=== PATIENT | male | born 1955 | race Caucasian/White ===

== ENCOUNTER 2017-04-14 10:35 | Emergency (ER) | payer OTHER ==
[~2017-04-14] VITALS: Ht 182.9 cm; Wt 90.0 kg
[2017-04-14 11:24] LABS: AUTOMATED NEUTROPHIL # 5.8 TH/MM3 (1.8-7.7); BASOPHIL # 0.3 TH/MM3 (0-0.2); BASOPHIL % 3.3 % (0.0-2.0); EOSINOPHIL # 0.3 TH/MM3 (0-0.4); EOSINOPHIL % 3.5 % (0.0-4.0); HEMATOCRIT 44.2 % (39.0-51.0); HEMO FLAGS DIFF FINAL; LYMPH % 16.6 % (9.0-44.0); LYMPHOCYTE # 1.3 TH/MM3 (1.0-4.8); MEAN CELL VOLUME 98.4 FL (80.0-100.0); MEAN CORPUSCULAR HEMOGLOBIN 33.3 PG (27.0-34.0); MEAN CORPUSCULAR HGB CONC 33.9 % (32.0-36.0); MONO % 4.9 % (0.0-8.0); NEUT % 71.7 % (16.0-70.0); PLATELET COUNT 284 TH/MM3 (150-450); RED BLOOD COUNT 4.49 MIL/MM3 (4.50-5.90); RED CELL DISTRIBUTION WIDTH 12.7 % (11.6-17.2); WHITE BLOOD COUNT 8.1 TH/MM3 (4.0-11.0)
--- NOTE | 2017-04-14 11:28 | PD ---
HPI . Left heel and right knee pain Chief Complaint: Injury Time Seen by Provider: 11:06 Travel History International Travel<30 days: No Contact w/Intl Traveler<30days: No Traveled to known affect area: No History of Present Illness HPI This patient presents with 2 problems. His first his left heel pain. He states that he stepped on a nail that her cane which was 2 months ago. He was wearing a shoe. He states that the nail went into the plantar heel and out the medial heel. He states that the nail came back out when he took off his shoe. He really did not think much of it. He states that the puncture wounds healed nicely but that he has continued to have severe left heel pain since that time. The pain is exacerbated by stepping on his heel. He denies any associated systemic symptoms such as fever or nausea. He states that he has taken over-the -counter analgesics with no relief of his symptoms. He states that his left heel pain was so bad yesterday that caused him to fall landing on his right knee. He comes in today also complaining with right knee pain. Pain of the right knee is exacerbated by walking. The knee pain is moderate. PFSH Past Medical History Arthritis: Yes Blood Disorders: No Heart Rhythm Problems: No Cancer: No Cardiac Catheterization: No Cardiovascular Problems: Yes (STRESS TEST IN JUL) High Cholesterol: Yes Chest Pain: Yes Congestive Heart Failure: No Cerebrovascular Accident: Yes Diabetes: No Diminished Hearing: No Endocrine: No Gastrointestinal Disorders: Yes GERD: Yes Genitourinary: Yes (BLOODY URINE) Hepatitis: No Hiatal Hernia: No Immune Disorder: No Musculoskeletal: Yes (2 RUPTURED DISC LOWER BACK, 1 RUPTURED DISC NECK) Neurologic: Yes (HX "MINI" STROKE) Psychiatric: No Reproductive: No Respiratory: No Immunizations Current: No Thyroid Disease: No PNEUMOCCOCAL Vaccine (Year): 2 Past Surgical History Abdominal Surgery: No AICD: No Body Medical Devices: NONE Cardiac Surgery: No Coronary Artery Bypass Graft: No Ear Surgery: No Endocrine Surgery: No Eye Surgery: No Genitourinary Surgery: Yes (TUMOR REMOVAL FROM BLADDER) Joint Replacement: No Oral Surgery: Yes (TONSILLECTOMY) Pacemaker: No Thoracic Surgery: No Other Surgery: Yes Family History Family Myocardial Infarction: Yes (MOM AND DAD) Social History Alcohol Use: Yes (2-3 X WK) Tobacco Use: Yes (1/2 PPD X 35 YEARS) Substance Use: No Allergies-Medications (Allergen,Severity, Reaction): Coded Allergies: *MDRO Multi-Drug Resistant Organism (Verified Allergy, Unknown, 04/14/17) MRSA PATIENT STATES HE HAS NEVER HAD MRSA Reported Meds & Prescriptions Reported Meds & Active Scripts Active Cipro (Ciprofloxacin HCl) 250 Mg Tab 750 Mg PO BID 10 Days Nabumetone 750 Mg Tab 750 Mg PO BID Review of Systems Except as stated in HPI: all other systems reviewed are Neg General / Constitutional: No: Fever, Chills Gastrointestinal: No: Nausea, Vomiting Musculoskeletal: Positive: Arthralgias Skin: Positive Other (healed puncture wounds to the left heel) Physical Exam Narrative GENERAL: This patient is awake and alert and does not appear to be in any acute distress. SKIN: Warm and dry. The skin of the left heel has no changes. There is no redness or warmth or swelling. HEAD: Normocephalic/atraumatic. EYES: Pupils are equal. Extraocular movements are intact. NECK: Supple with full range of motion. RESPIRATORY: Nonlabored respirations. MUSCULOSKELETAL: Diffuse left heel tenderness. No point tenderness. Right knee is also diffusely tender. There is no effusion. No bruising or abrasion. Full range of motion. Distally neurovascularly intact. NEUROLOGICAL: Nonfocal. PSYCHIATRIC: Appropriate mood and affect. Data Data Orders Orders Foot, Complete ([id number]) (04/14/17 11:06) Knee, Complete (4vws) (04/14/17 11:06) Complete Blood Count With Diff (04/14/17 11:06) Westergren Sedimentation Rate (04/14/17 11:08) Labs Laboratory Tests Test 04/14/17 11:18 White Blood Count 8.1 TH/MM3 Red Blood Count 4.49 MIL/MM3 Hemoglobin 15.0 GM/DL Hematocrit 44.2 % Mean Corpuscular Volume 98.4 FL Mean Corpuscular Hemoglobin 33.3 PG Mean Corpuscular Hemoglobin Concent 33.9 % Red Cell Distribution Width 12.7 % Platelet Count 284 TH/MM3 Mean Platelet Volume 7.1 FL Neutrophils (%) (Auto) 71.7 % Lymphocytes (%) (Auto) 16.6 % Monocytes (%) (Auto) 4.9 % Eosinophils (%) (Auto) 3.5 % Basophils (%) (Auto) 3.3 % Neutrophils # (Auto) 5.8 TH/MM3 Lymphocytes # (Auto) 1.3 TH/MM3 Monocytes # (Auto) 0.4 TH/MM3 Eosinophils # (Auto) 0.3 TH/MM3 Basophils # (Auto) 0.3 TH/MM3 CBC Comment DIFF FINAL Differential Comment Erythrocyte Sedimentation Rate 6 mm/hr MDM Medical Decision Making Medical Screen Exam Complete: Yes Emergency Medical Condition: Yes Differential Diagnosis Differential diagnosis of extremity trauma includes but is not limited to fracture, sprain or strain, dislocation, contusion My differential diagnosis of tissue infection includes but is not limited to localized wound infection, cellulitis, abscess, retained foreign body, osteomyelitis Narrative Course This patient presents for the evaluation of 2 problems. His first is continued pain in his left heel after suffering a puncture wound through his shoe 2 months ago. I have ordered plain films, CBC and sedimentation rate as an initial evaluation of possible osteomyelitis. This has been an ongoing problem for 2 months. Therefore, I do not believe that emergent MRI is indicated. He is also here with a right knee injury. I have a very low index of suspicion of significant injury to the ED as there is no swelling or deformity. X-rays are pending. CBC Diagram 04/14/17 11:18 ESR 6 L foot X-ray: Three view examination of the left foot demonstrates no soft tissue swelling, dislocation, or fracture. The tarsal bones appear intact. The interphalangeal and metatarsophalangeal joints are intact. The calcaneus is intact. Bony mineralization is normal. Last Impressions Knee X-Ray 04/14/17 1106 Signed Impressions: Service Date/Time: Friday, April 14, 2017 11:19 - CONCLUSION: Negative for fracture. Nahum Lainez MD FACR This patient has normal plain films, normal white blood count and normal sedimentation rate. My index of suspicion for osteomyelitis is extremely low. Will present infection since he stepped on a nail through a shoe. He will be treated with Cipro. I have given him a referral to [facility]. I have given him a prescription for Relafen to take as needed for pain. Diagnosis Primary Impression: Soft tissue infection of foot Additional Impression: Contusion, knee Qualified Codes: S80.01XA - Contusion of right knee, initial encounter Referrals: [facility] 3 days Patient Instructions: Contusion in Adults (DC), General Instructions Med/Other Pt SpecificInfo: Prescription(s) given Scripts Ciprofloxacin (Cipro) 250 Mg Tab 750 MG PO BID for Infection for 10 Days, #60 TAB 0 Refills Prov: Sheridan Valladares MD 04/14/17 Nabumetone (Nabumetone) 750 Mg Tab 750 MG PO BID for Pain-Inflammation, #60 TAB 0 Refills Prov: Sheridan Valladares MD 04/14/17 Disposition: 01 DISCHARGE HOME Condition: Stable Sheridan Valladares MD Apr 14, 2017 11:28
--- NOTE | 2017-04-14 11:42 | RADRPT ---
EXAM DATE/TIME: 04/14/2017 11:19 [facility] COMPARISON: No previous studies available for comparison. INDICATIONS : Right knee pain post fall. MEDICAL HISTORY : Carcinoma, bladder. SURGICAL HISTORY : None. ENCOUNTER: Initial ACUITY: 1 day PAIN SCORE: 6/10 LOCATION: Right medial knee FINDINGS: Four view examination of the right knee demonstrates no evidence of fracture or dislocation. Bony mi neralization is normal. The articular surfaces are intact. Moderate vascular calcifications are not ed. The suprapatellar soft tissues have a normal configuration. CONCLUSION: Negative for fracture. Nahum Lainez MD FACR on April 14, 2017 at 11:40 Board Certified Radiologist. This report was verified electronically.
--- NOTE | 2017-04-14 11:43 | RADRPT ---
EXAM DATE/TIME: 04/14/2017 11:19 [facility] COMPARISON: No previous studies available for comparison. INDICATIONS : Left foot pain post fall. MEDICAL HISTORY : Carcinoma, bladder. SURGICAL HISTORY : None. ENCOUNTER: Initial ACUITY: 1 day PAIN SCORE: 6/10 LOCATION: Left heel FINDINGS: Three view examination of the left foot demonstrates no soft tissue swelling, dislocation, or fractur e. The tarsal bones appear intact. The interphalangeal and metatarsophalangeal joints are intact. The calcaneus is intact. Bony mineralization is normal. CONCLUSION: Negative for fracture. Nahum Lainez MD FACR on April 14, 2017 at 11:41 Board Certified Radiologist. This report was verified electronically.
[2017-04-14] MEDS ORDERED: CIPR250T52 PO (11:52)
[2017-04-14] MEDS ORDERED: NABU1TAB33 PO ×2 (11:52→12:04)
== END 2017-04-14 12:09 | disposition home or self-care (01) ==
LOC: PHEFT 10:35
DX: L08.9 Local infection of the skin and subcutaneous tissue, unspecified (principal); S80.01XA Contusion of right knee, initial encounter; E78.00 Pure hypercholesterolemia, unspecified; F17.200 Nicotine dependence, unspecified, uncomplicated; W45.0XXA Nail entering through skin, initial encounter; W18.39XA Other fall on same level, initial encounter; Z87.39 Personal history of other diseases of the musculoskeletal system and connective tissue; Z86.79 Personal history of other diseases of the circulatory system; Z87.19 Personal history of other diseases of the digestive system; Z87.448 Personal history of other diseases of urinary system; Z86.69 Personal history of other diseases of the nervous system and sense organs
CPT/HCPCS: 73564; 73630; 85025; 85652; 99284

== ENCOUNTER 2017-07-13 00:27 | Observation (INO) | payer SELFPAY ==
[~2017-07-13] VITALS: Ht 182.9 cm; Wt 86.0 kg
[2017-07-13] VITALS (9 sets, daily range): BP systolic 117–137; BP diastolic 67–90; PULSE 68–100; RESP 16–20; TEMP 98–99.1; O2SAT 93–99
[~2017-07-13 00:27] MED LIST: CIPR250T52 PO; NABU1TAB33 PO
[2017-07-13] MEDS ORDERED: ONDANSETRON HCL 4 MG/2 ML VIAL IV PUSH ONE (01:15)
[2017-07-13] MEDS ORDERED: DIPHTH/TETANUS/ACEL PERTUSSIS (BOOSTER) 0.5 ML VIAL/PFS IM ONE (01:15)
[2017-07-13] MEDS ORDERED: SODIUM CHLORIDE 0.9% FLUSH 10 ML FLUSH IVF PRN (01:15)
--- NOTE | 2017-07-13 01:41 | RADRPT ---
EXAM DATE/TIME: 07/13/2017 01:23 [facility] COMPARISON: CT BRAIN W/O CONTRAST, July 04, 2014, 12:52. INDICATIONS : Trauma, fall. Laceration to posterior head. RADIATION DOSE: 35.39 CTDIvol (mGy) MEDICAL HISTORY : Cerebrovascular disease. Cardiovascular disease SURGICAL HISTORY : None. ENCOUNTER: Initial ACUITY: 1 day PAIN SCALE: 4/10 LOCATION: cranial TECHNIQUE: Multiple contiguous axial images were obtained of the head. Using automated exposure control and adj ustment of the mA and/or kV according to patient size, radiation dose was kept as low as reasonably a chievable to obtain optimal diagnostic quality images. DICOM format image data is available electro nically for review and comparison. FINDINGS: CEREBRUM: There is moderate generalized atrophy. Ventricles are normal. There is mild periventricular white mat ter low attenuation. No evidence of midline shift, mass lesion, hemorrhage or acute infarction. No extra-axial fluid collections are seen. POSTERIOR FOSSA: The cerebellum and brainstem demonstrate no acute finding. The 4th ventricle is midline. The cerebe llopontine angle is unremarkable. EXTRACRANIAL: There is right posterior scalp soft tissue swelling. Mild mucoperiosteal thickening is present within the sphenoid sinus. SKULL: The calvaria is intact. No evidence of skull fracture. CONCLUSION: Mild right posterior scalp soft tissue swelling. No fracture or acute intracranial abnormality is sherry ntified. Aron Moncada MD on July 13, 2017 at 1:36 Board Certified Radiologist. This report was verified electronically.
[2017-07-13 01:43] LABS: AUTOMATED NEUTROPHIL # 9.3 TH/MM3 (1.8-7.7); BASOPHIL # 0.2 TH/MM3 (0-0.2); BASOPHIL % 1.6 % (0.0-2.0); EOSINOPHIL # 0.1 TH/MM3 (0-0.4); EOSINOPHIL % 1.4 % (0.0-4.0); HEMATOCRIT 41.4 % (39.0-51.0); HEMOGLOBIN 14.5 GM/DL (13.0-17.0); LYMPH % 4.6 % (9.0-44.0); LYMPHOCYTE # 0.5 TH/MM3 (1.0-4.8); MEAN CELL VOLUME 98.5 FL (80.0-100.0); MEAN CORPUSCULAR HEMOGLOBIN 34.6 PG (27.0-34.0); MEAN CORPUSCULAR HGB CONC 35.1 % (32.0-36.0); MEAN PLATELET VOLUME 7.5 FL (7.0-11.0); MONO % 5.2 % (0.0-8.0); MONOCYTE # 0.6 TH/MM3 (0-0.9); NEUT % 87.2 % (16.0-70.0); PLATELET COUNT 208 TH/MM3 (150-450); RED BLOOD COUNT 4.21 MIL/MM3 (4.50-5.90); RED CELL DISTRIBUTION WIDTH 13.9 % (11.6-17.2); WHITE BLOOD COUNT 10.7 TH/MM3 (4.0-11.0)
--- NOTE | 2017-07-13 01:44 | RADRPT ---
EXAM DATE/TIME: 07/13/2017 01:23 [facility] COMPARISON: No previous studies available for comparison. INDICATIONS : Trauma, fall. RADIATION DOSE: 20.12 CTDIvol (mGy) MEDICAL HISTORY : Cardiovascular disease. Cerebrovascular disease. SURGICAL HISTORY : None. ENCOUNTER: Initial ACUITY: 1 day PAIN SCALE: 0/10 LOCATION: neck TECHNIQUE: Volumetric scanning of the cervical spine was performed. Multiplanar reconstructions in the sagittal, coronal and oblique axial planes were performed. Using automated exposure control and adjustment o f the mA and/or kV according to patient size, radiation dose was kept as low as reasonably achievable to obtain optimal diagnostic quality images. DICOM format image data is available electronically f or review and comparison. FINDINGS: There is normal sagittal spine alignment of the cervical spine. No anterolisthesis or retrolisthesis is present. The atlantoaxial relationship is within normal limits. There is no prevertebral soft tiss ue swelling present. No fracture or dislocation is identified. There is degenerative disc disease at C5-C6 and more severely at C6-C7. Severe right facet arthrosis is present at C3-C4 and C4-C5. The visualized portions of the posterior fossa, paraspinous soft tissues, and upper lung zones demons trate no acute abnormality. CONCLUSION: There are degenerative changes of the cervical spine, as above. No acute cervical spine abnormality i s identified. Aron Moncada MD on July 13, 2017 at 1:40 Board Certified Radiologist. This report was verified electronically.
[2017-07-13 01:50] LABS: BICARBONATE 25.2 MEQ/L (21.0-32.0); BLOOD UREA NITROGEN 9 MG/DL (7-18); CALCIUM 8.4 MG/DL (8.5-10.1); CHLORIDE 105 MEQ/L (98-107); CREATININE 0.86 MG/DL (0.60-1.30); GLOMERULAR FILTRATION RATE 90 ML/MIN (>89); GLUCOSE,RANDOM 99 MG/DL (74-106); SODIUM (NA) 139 MEQ/L (136-145)
[2017-07-13 01:54] LABS: TROPONIN I LESS THAN 0.02 NG/ML (0.02-0.05)
--- NOTE | 2017-07-13 01:56 | RADRPT ---
EXAM DATE/TIME: 07/13/2017 01:37 [facility] COMPARISON: HUMERUS RIGHT (MIN 2VWS), March 16, 2012, 18:15. INDICATIONS : Right humerus pain post fall. MEDICAL HISTORY : Cerebrovascular disease. Cardiovascular disease. SURGICAL HISTORY : None. ENCOUNTER: Initial ACUITY: 1 day PAIN SCORE: 6/10 LOCATION: Right humerus. FINDINGS: 2 views right humerus demonstrate no fracture or dislocation. Mineralization is within normal limits. No soft tissue abnormality or radiopaque foreign body is identified. CONCLUSION: No acute abnormality is identified. Aron Moncada MD on July 13, 2017 at 1:54 Board Certified Radiologist. This report was verified electronically.
--- NOTE | 2017-07-13 01:56 | RADRPT ---
EXAM DATE/TIME: 07/13/2017 01:32 [facility] COMPARISON: No previous studies available for comparison. INDICATIONS : Right forearm pain post fall. MEDICAL HISTORY : Cerebrovascular disease. Cardiovascular disease. SURGICAL HISTORY : None. ENCOUNTER: Initial ACUITY: 1 day PAIN SCORE: 6/10 LOCATION: Right forearm. FINDINGS: 3 views of the right forearm demonstrate no fracture or dislocation. Mineralization is within normal limits. No soft tissue abnormality is identified. CONCLUSION: No acute abnormality is identified. Aron Moncada MD on July 13, 2017 at 1:53 Board Certified Radiologist. This report was verified electronically.
[2017-07-13] MEDS ORDERED: SODIUM CHLORIDE 0.9% FLUSH 10 ML FLUSH IV FLUSH PRN (04:15)
--- NOTE | 2017-07-13 05:07 | PD ---
HPI Chief Complaint: Fall Time Seen by Provider: 01:05 Travel History International Travel<30 days: No Contact w/Intl Traveler<30days: No Traveled to known affect area: No History of Present Illness HPI 62-year-old male presents to the emergency department by EMS transport for evaluation of head injury right upper extremity pain and chest pain. Patient had a possible trip and fall versus a fainting spell but admits to drinking alcohol this evening. Patient states that he has had fainting spells before and also has a history of angina. Patient states his chest discomfort reminds him of his anginal pain. Patient denies headache or confusion. Patient has had nausea without vomiting. Patient denies shortness of breath or sweats or referred neck jaw shoulder back left upper extremity pain. Patient complains of right arm pain and is concerned that he may have injured his elbow when he fell. Patient denies any lower extremity pain or weakness. Patient states his tetanus status he believes is current. Patient admits to ongoing tobacco use history of dyslipidemia and family history of premature onset heart disease. Tetanus status is current as of 2014 [facility] Past Medical History Narrative Medical Arthritis dyslipidemia chest pain CVA alcoholism; family history CAD/VT nursing notes reviewed; Arthritis: Yes Blood Disorders: No Heart Rhythm Problems: No Cancer: No Cardiac Catheterization: No Cardiovascular Problems: Yes (STRESS TEST IN JUL) High Cholesterol: Yes Chest Pain: Yes Congestive Heart Failure: No Cerebrovascular Accident: Yes Diabetes: No Diminished Hearing: No Endocrine: No Gastrointestinal Disorders: Yes (GERD) GERD: Yes Genitourinary: Yes (BLOODY URINE) Hepatitis: No Hiatal Hernia: No Immune Disorder: No Musculoskeletal: Yes (2 RUPTURED DISC LOWER BACK, 1 RUPTURED DISC NECK) Neurologic: Yes (HX "MINI" STROKE) Psychiatric: No Reproductive: No Respiratory: No Immunizations Current: No Thyroid Disease: No Tetanus Vaccination: > 5 Years Influenza Vaccination: No PNEUMOCCOCAL Vaccine (Year): 2 Past Surgical History Abdominal Surgery: No AICD: No Body Medical Devices: NONE Cardiac Surgery: No Coronary Artery Bypass Graft: No Ear Surgery: No Endocrine Surgery: No Eye Surgery: No Genitourinary Surgery: Yes (TUMOR REMOVAL FROM BLADDER) Joint Replacement: No Oral Surgery: Yes (TONSILLECTOMY) Pacemaker: No Thoracic Surgery: No Other Surgery: Yes Family History Family Myocardial Infarction: Yes (MOM AND DAD) Social History Alcohol Use: Yes (2-3 X WK) Tobacco Use: Yes (1-1/2 PPD X 35 YEARS) Substance Use: No Allergies-Medications (Allergen,Severity, Reaction): Coded Allergies: *MDRO Multi-Drug Resistant Organism (Verified Allergy, Unknown, 07/13/17) MRSA PATIENT STATES HE HAS NEVER HAD MRSA Reported Meds & Prescriptions Reported Meds & Active Scripts Active No Active Prescriptions or Reported Medications Review of Systems Except as stated in HPI: all other systems reviewed are Neg Physical Exam Narrative GENERAL: Well-developed well-nourished disheveled male in no acute distress no respiratory distress SKIN: Warm and dry. HEAD: Atraumatic. Normocephalic. Right posterior parietal scalp hematoma with 2 cm linear laceration bleeding controlled and right forehead contusion abrasion with soft tissue swelling no bony abnormality. EYES: Pupils equal and round. Extraocular muscles intact. No periorbital rim bony step-off. No scleral icterus. No injection or drainage. ENT: No nasal bleeding or discharge. Mucous membranes pink and moist. No hemotympanum. NECK: Trachea midline. No JVD. No midline tenderness to direct palpation along the cervical spine no bony step-off. CARDIOVASCULAR: Regular rate and rhythm. Chest wall: Nontender to direct palpation no crepitus no point tenderness no abrasion or ecchymosis. RESPIRATORY: No accessory muscle use. Clear to auscultation. Breath sounds equal bilaterally. GASTROINTESTINAL: Abdomen soft, non-tender, nondistended. Hepatic and splenic margins not palpable. MUSCULOSKELETAL: Extremities without clubbing, cyanosis, or edema. No obvious deformities. NEUROLOGICAL: Awake and alert. GCS 15. No obvious cranial nerve deficits. Motor grossly within normal limits. Five out of 5 muscle strength in the arms and legs. Normal speech. PSYCHIATRIC: Appropriate mood and affect; insight and judgment normal. Data Data Last Documented VS Vital Signs Date Time Temp Pulse Resp B/P (MAP) Pulse Ox O2 Delivery O2 Flow Rate FiO2 07/13/17 01:17 99 Room Air 07/13/17 01:17 16 07/13/17 00:37 98.0 99 127/90 (102) Orders Orders Basic Metabolic Panel (Bmp) (07/13/17 01:05) Complete Blood Count With Diff (07/13/17 01:05) Prothrombin Time / Inr (Pt) (07/13/17 01:05) Act Partial Throm Time (Ptt) (07/13/17 01:05) Type And Screen (07/13/17 01:05) Alcohol (Ethanol) (07/13/17 01:05) Drug Screen, Random Urine (07/13/17 01:05) Ct Brain W/O Iv Contrast(Rout) (07/13/17 01:05) Ct Cerv Spine W/O Contrast (07/13/17 01:05) Electrocardiogram (07/13/17 01:05) Iv Access Insert/Monitor (07/13/17 01:05) Ecg Monitoring (07/13/17 01:05) Oximetry (07/13/17 01:05) Oxygen Administration (07/13/17 01:05) Ondansetron Inj (Zofran Inj) (07/13/17 01:15) Lxuy-Hbc-Qhyskg (Booster) Inj (Boostrix (07/13/17 01:15) Sodium Chloride 0.9% Flush (Ns Flush) (07/13/17 01:15) Troponin I (07/13/17 01:05) Humerus (Min 2vws) (07/13/17 ) Forearm (2vws) (07/13/17 ) Admit Order (Ed Use Only) (07/13/17 ) Tufter Hand / Telemetry RIVAS.Q8H (07/13/17 04:04) Diet Heart Healthy (07/13/17 Breakfast) Activity Oob With Assistance (07/13/17 04:04) Notify Dr: Other (07/13/17 04:04) Activity Bed Rest With Brp (07/13/17 04:04) Vital Signs (Adult) Q4H (07/13/17 04:04) Cardiac Rhythm .As Directed (07/13/17 04:04) Notify Dr: Other .PRN (07/13/17 04:04) Notify Parameters (07/13/17 04:04) Resp Oxygen Nasal Cannula (07/13/17 ) Ckmb (Isoenzyme) Profile (07/13/17 04:15) Ckmb (Isoenzyme) Profile (07/13/17 07:15) Troponin I (07/13/17 04:15) Troponin I (07/13/17 07:15) Electrocardiogram (07/13/17 04:15) Electrocardiogram (07/13/17 07:15) ^ Obtain (07/13/17 04:04) Sodium Chloride 0.9% Flush (Ns Flush) (07/13/17 04:15) Sodium Chloride 0.9% Flush (Ns Flush) (07/13/17 09:00) Tufter Hand / Telemetry RIVAS.Q8H (07/13/17 04:04) Labs Laboratory Tests Test 07/13/17 01:15 White Blood Count 10.7 TH/MM3 Red Blood Count 4.21 MIL/MM3 Hemoglobin 14.5 GM/DL Hematocrit 41.4 % Mean Corpuscular Volume 98.5 FL Mean Corpuscular Hemoglobin 34.6 PG Mean Corpuscular Hemoglobin Concent 35.1 % Red Cell Distribution Width 13.9 % Platelet Count 208 TH/MM3 Mean Platelet Volume 7.5 FL Neutrophils (%) (Auto) 87.2 % Lymphocytes (%) (Auto) 4.6 % Monocytes (%) (Auto) 5.2 % Eosinophils (%) (Auto) 1.4 % Basophils (%) (Auto) 1.6 % Neutrophils # (Auto) 9.3 TH/MM3 Lymphocytes # (Auto) 0.5 TH/MM3 Monocytes # (Auto) 0.6 TH/MM3 Eosinophils # (Auto) 0.1 TH/MM3 Basophils # (Auto) 0.2 TH/MM3 CBC Comment AUTO DIFF Differential Comment AUTO DIFF CONFIRMED Prothrombin Time 10.0 SEC Prothromb Time International Ratio 1.0 RATIO Activated Partial Thromboplast Time 25.9 SEC Blood Urea Nitrogen 9 MG/DL Creatinine 0.86 MG/DL Random Glucose 99 MG/DL Calcium Level 8.4 MG/DL Sodium Level 139 MEQ/L Potassium Level 3.5 MEQ/L Chloride Level 105 MEQ/L Carbon Dioxide Level 25.2 MEQ/L Anion Gap 9 MEQ/L Estimat Glomerular Filtration Rate 90 ML/MIN Troponin I LESS THAN 0.02 NG/ML Ethyl Alcohol Level 130 MG/DL MDM Medical Decision Making Medical Screen Exam Complete: Yes Emergency Medical Condition: Yes Medical Record Reviewed: Yes Interpretation(s) EKG normal sinus rhythm rate 85 Q-wave inferiorly poor R-wave progression septally no acute ST elevation or injury pattern Last Impressions Head CT 07/13/17 0105 Signed Impressions: Service Date/Time: July 01:23 - CONCLUSION: Mild right posterior scalp soft tissue swelling. No fracture or acute intracranial abnormality is identified. Aron Moncada MD Cervical Spine CT 07/13/17 0105 Signed Impressions: Service Date/Time: July 01:23 - CONCLUSION: There are degenerative changes of the cervical spine, as above. No acute cervical spine abnormality is identified. Aron Moncada MD Radius/Ulna X-Ray 07/13/17 0000 Signed Impressions: Service Date/Time: July 01:32 - CONCLUSION: No acute abnormality is identified. Aron Moncada MD Humerus X-Ray 07/13/17 0000 Signed Impressions: Service Date/Time: July 01:37 - CONCLUSION: No acute abnormality is identified. Aron Moncada MD CBC & BMP Diagram 07/13/17 01:15 Calcium Level 8.4 L Vital Signs Date Time Temp Pulse Resp B/P (MAP) Pulse Ox O2 Delivery O2 Flow Rate FiO2 07/13/17 01:17 99 Room Air 07/13/17 01:17 16 99 Room Air 07/13/17 00:37 98.0 99 16 127/90 (102) 96 Differential Diagnosis Syncope, alcohol intoxication, minor closed head injury, ICH, skull fracture, cervical spine strain sprain fracture, chest pain, chest wall contusion, rib fracture, ACS, VT, alcohol intoxication, substance ingestion Narrative Course IV access obtained specimens collected and sent for resulting patient placed on cardiac cath tech with continuous pulse oximetry; CT imaging studies ordered along with chest x-ray EKG performed EKG normal sinus rhythm rate 84 small inferior Q-wave age- indeterminate poor R-wave progression septally V1 V2 no acute ST elevation injury pattern Physician Communication Physician Communication discussed with [facility] service --- CARE NURSE RN Diagnosis Primary Impression: Chest pain Additional Impressions: Tobacco abuse Alcohol ingestion Minor head injury Admitting Information Admitting Physician Requests: Observation Scripts No Active Prescriptions or Reported Meds Joanna Oneal MD Jul 13, 2017 05:07
--- NOTE | 2017-07-13 05:33 | RADRPT ---
EXAM DATE/TIME: 07/13/2017 05:16 [facility] COMPARISON: CHEST SINGLE AP, September 22, 2014, 19:41. INDICATIONS : Chest pain. MEDICAL HISTORY : Cerebrovascular disease. Cardiovascular disease. SURGICAL HISTORY : None. ENCOUNTER: Initial ACUITY: 1 day PAIN SCORE: 110 LOCATION: Bilateral cranial FINDINGS: Portable AP view of the chest demonstrates a normal-sized cardiac silhouette. Lungs are underinflated with mild atelectasis at the lung bases. No effusion, consolidation, or pneumothorax is identified. The bones and soft tissues demonstrate no acute finding. There is an old healed right mid clavicle fr acture. CONCLUSION: Underinflation with atelectasis at the lung bases. Otherwise, no acute finding is identified. Aron Moncada MD on July 13, 2017 at 5:31 Board Certified Radiologist. This report was verified electronically.
--- NOTE | 2017-07-13 05:53 | PD ---
Physical Exam Date Seen by Provider: Jul 13, 2017 Narrative For full history and physical examination please see previous providers note. I was asked to repair laceration to patient's posterior scalp. Data Data Last Documented VS Vital Signs Date Time Temp Pulse Resp B/P (MAP) Pulse Ox O2 Delivery O2 Flow Rate FiO2 07/13/17 01:17 99 Room Air 07/13/17 01:17 16 07/13/17 00:37 98.0 99 127/90 (102) Orders Orders Basic Metabolic Panel (Bmp) (07/13/17 01:05) Complete Blood Count With Diff (07/13/17 01:05) Prothrombin Time / Inr (Pt) (07/13/17 01:05) Act Partial Throm Time (Ptt) (07/13/17 01:05) Type And Screen (07/13/17 01:05) Alcohol (Ethanol) (07/13/17 01:05) Drug Screen, Random Urine (07/13/17 01:05) Ct Brain W/O Iv Contrast(Rout) (07/13/17 01:05) Ct Cerv Spine W/O Contrast (07/13/17 01:05) Electrocardiogram (07/13/17 01:05) Iv Access Insert/Monitor (07/13/17 01:05) Ecg Monitoring (07/13/17 01:05) Oximetry (07/13/17 01:05) Oxygen Administration (07/13/17 01:05) Ondansetron Inj (Zofran Inj) (07/13/17 01:15) Tywc-Upy-Onjjcq (Booster) Inj (Boostrix (07/13/17 01:15) Sodium Chloride 0.9% Flush (Ns Flush) (07/13/17 01:15) Troponin I (07/13/17 01:05) Humerus (Min 2vws) (07/13/17 ) Forearm (2vws) (07/13/17 ) Admit Order (Ed Use Only) (07/13/17 ) 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 RIVAS.Q8H (07/13/17 04:04) Diet Heart Healthy (07/13/17 Breakfast) Activity Oob With Assistance (07/13/17 04:04) Notify Dr: Other (07/13/17 04:04) Activity Bed Rest With Brp (07/13/17 04:04) Vital Signs (Adult) Q4H (07/13/17 04:04) Cardiac Rhythm .As Directed (07/13/17 04:04) Notify Dr: Other .PRN (07/13/17 04:04) Notify DrForeign Parameters (07/13/17 04:04) Resp Oxygen Nasal Cannula (07/13/17 ) Ckmb (Isoenzyme) Profile (07/13/17 04:15) Ckmb (Isoenzyme) Profile (07/13/17 07:15) Troponin I (07/13/17 04:15) Troponin I (07/13/17 07:15) Electrocardiogram (07/13/17 04:15) Electrocardiogram (07/13/17 07:15) ^ Obtain (07/13/17 04:04) Sodium Chloride 0.9% Flush (Ns Flush) (07/13/17 04:15) Sodium Chloride 0.9% Flush (Ns Flush) (07/13/17 09:00) 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 RIVAS.Q8H (07/13/17 04:04) Labs Laboratory Tests Test 07/13/17 01:15 White Blood Count 10.7 TH/MM3 Red Blood Count 4.21 MIL/MM3 Hemoglobin 14.5 GM/DL Hematocrit 41.4 % Mean Corpuscular Volume 98.5 FL Mean Corpuscular Hemoglobin 34.6 PG Mean Corpuscular Hemoglobin Concent 35.1 % Red Cell Distribution Width 13.9 % Platelet Count 208 TH/MM3 Mean Platelet Volume 7.5 FL Neutrophils (%) (Auto) 87.2 % Lymphocytes (%) (Auto) 4.6 % Monocytes (%) (Auto) 5.2 % Eosinophils (%) (Auto) 1.4 % Basophils (%) (Auto) 1.6 % Neutrophils # (Auto) 9.3 TH/MM3 Lymphocytes # (Auto) 0.5 TH/MM3 Monocytes # (Auto) 0.6 TH/MM3 Eosinophils # (Auto) 0.1 TH/MM3 Basophils # (Auto) 0.2 TH/MM3 CBC Comment AUTO DIFF Differential Comment AUTO DIFF CONFIRMED Prothrombin Time 10.0 SEC Prothromb Time International Ratio 1.0 RATIO Activated Partial Thromboplast Time 25.9 SEC Blood Urea Nitrogen 9 MG/DL Creatinine 0.86 MG/DL Random Glucose 99 MG/DL Calcium Level 8.4 MG/DL Sodium Level 139 MEQ/L Potassium Level 3.5 MEQ/L Chloride Level 105 MEQ/L Carbon Dioxide Level 25.2 MEQ/L Anion Gap 9 MEQ/L Estimat Glomerular Filtration Rate 90 ML/MIN Troponin I LESS THAN 0.02 NG/ML Ethyl Alcohol Level 130 MG/DL [facility] Medical Record Reviewed: Yes Supervised Visit with ROB: Yes Procedures Procedure Narrative LACERATION LOCATION: Posterior scalp LENGTH: Starburst NUMBER OF STITCHES/TIFFANIE: 4 tiffanie REPAIR: The area of the laceration was prepped with Betadine and sterilely draped. The wound was copiously irrigated and explored without evidence of foreign body, tendon injury or neurovascular injury. The wound was closed using tiffanie. This was a 1 layer repair. A sterile dressing was applied. The patient was advised to keep the dressing clean and dry. Patient tolerated the procedure well. Diagnosis Primary Impression: Chest pain Additional Impressions: Minor head injury Tobacco abuse Alcohol ingestion Scripts No Active Prescriptions or Reported Zakia Antoine Jul 13, 2017 05:53
[2017-07-13 06:05] LABS: TROPONIN I LESS THAN 0.02 NG/ML (0.02-0.05)
[2017-07-13] MEDS ORDERED: ONDANSETRON HCL 4 MG/2 ML VIAL IV PUSH PRN (08:45)
[2017-07-13] MEDS ORDERED: LORazepam 2 MG/ML VIAL IV PUSH PRN ×4 (08:45)
[2017-07-13] MEDS ORDERED: ACETAMINOPHEN 500 MG CPLT PO PRN (08:45)
[2017-07-13] MEDS ORDERED: FLUMAZENIL 0.5 MG/5 ML VIAL IV PUSH PRN (08:45)
[2017-07-13] MEDS ORDERED: NITROGLYCERIN 0.4 MG SL 25 TABS/BTL SL PRN (08:45)
[2017-07-13] MEDS ORDERED: LORazepam 1 MG TAB PO PRN (08:45)
[2017-07-13] MEDS ORDERED: LORazepam 2 MG TAB PO PRN (08:45)
--- NOTE | 2017-07-13 08:45 | HHI.HP ---
HPI Primary Care Physician None Chief Complaint Syncope, chest pain History of Present Illness 62-year-old male with known EtOH abuse and current smoker presents emergency room for further evaluation after syncopal episode. Patient is a poor historian. Reports calling 911 after falling last evening. Does not remember events prior to syncope episode. Stating "only drinking 1 1/2 beers" last night. Unsure of how long he was "out" but also reports "maybe just a few minutes." Fell onto concrete. Reports previous syncope episodes in the past, generally one a month since April. Endorses chest pain last evening, but it is unclear if chest pain came before or after syncope episode. Locations substernal. Unable to characterized. Does not recall radiation, severity of discomfort, or associated symptoms. No known precipitating or relieving factors. Review of Systems General: No fatigue,weakness, fever, chills, recent illness, or change in appetite HEENT: No KIRK, no vision changes, no nasal congestion or drainage, no dysphasia CV: As stated above. No current chest pain or pressure. No palpitations, intermittent leg pain, or dizziness. RESP: No SOB, cough, wheeze GI: No nausea, vomiting, or bowel changes. : No dysuria, urgency, frequency EXT: No lower leg edema, no paraesthesias MS: No discomfort or change in ROM NEURO: Syncopal episodes as stated above. No change in memory, difficulty with balance, or motor/sensory deficits. PSYCH: No anxiety, depression SKIN: No rashes, no concerning lesions Past Family Social History Allergies: Coded Allergies: *MDRO Multi-Drug Resistant Organism (Verified Allergy, Unknown, 07/13/17) MRSA PATIENT STATES HE HAS NEVER HAD MRSA Past Medical History Arthritis, hyperlipidemia, current smoker, bladder cancer, GERD, TIA, alcohol abuse Past Surgical History Tonsillectomy, cystectomy Reported Medications Reported Meds & Active Scripts Active No Active Prescriptions or Reported Medications Active Ordered Medications Current Medications Medications (Trade) Dose Ordered Sig/Galileo Route Start Time Stop Time Status Last Admin (NS Flush) 2 ml UNSCH PRN IV FLUSH 07/13/17 04:15 (NS Flush) 2 ml BID IV FLUSH 07/13/17 09:00 Social History No known coronary artery disease, diabetes, or hypertension. Known hyperlipidemia. Currently on any medications. Current smoker 1pack/daily. History of 45 pack year history. Endorses daily alcohol of 1-2 beers. Denies any illegal drug use. Past cardiac testing None. Never required cardiac catheterization. Physical Exam Vital Signs Vital Signs Date Time Temp Pulse Resp B/P (MAP) Pulse Ox O2 Delivery O2 Flow Rate FiO2 07/13/17 07:52 98.6 90 18 123/77 (92) 97 07/13/17 06:22 99.1 83 20 117/67 (84) 93 07/13/17 04:21 99 07/13/17 01:17 99 Room Air 07/13/17 01:17 16 99 Room Air 07/13/17 00:37 98.0 99 16 127/90 (102) 96 Physical Exam GENERAL: Alert WN, WD, NAD, unkempt, pleasant, male who appears older than stated age who is a poor historian. HEAD: NC, AT NECK: Supple, no masses, trachea midline CV: RRR, 2/6 systolic murmur, no rub, no gallop, no JVD, S1-S2 no S3-S4. RESP: Clear lungs throughout bilateral, no crackles, wheeze, rhonchi, symmetrical chest rise, nonlabored, able to speak in full sentences ABD: Soft, NT, ND, no masses, positive bowel tones EXT: Pulses +24, no dependent edema MS: Normal tone 4 extremities, no obvious deformities, full range of motion NEURO: CN II through CN XII grossly intact, motor strength 5/5 PSYCH: A+O 3, pleasant affect, appropriate speech, questionable insight and judgment, poor historian SKIN: Normal turgor, normal texture, no lesions, no rashes Laboratory Laboratory Tests Test 07/13/17 01:15 07/13/17 05:15 White Blood Count 10.7 Red Blood Count 4.21 Hemoglobin 14.5 Hematocrit 41.4 Mean Corpuscular Volume 98.5 Mean Corpuscular Hemoglobin 34.6 Mean Corpuscular Hemoglobin Concent 35.1 Red Cell Distribution Width 13.9 Platelet Count 208 Mean Platelet Volume 7.5 Neutrophils (%) (Auto) 87.2 Lymphocytes (%) (Auto) 4.6 Monocytes (%) (Auto) 5.2 Eosinophils (%) (Auto) 1.4 Basophils (%) (Auto) 1.6 Neutrophils # (Auto) 9.3 Lymphocytes # (Auto) 0.5 Monocytes # (Auto) 0.6 Eosinophils # (Auto) 0.1 Basophils # (Auto) 0.2 CBC Comment AUTO DIFF Differential Comment AUTO DIFF CONFIRMED Prothrombin Time 10.0 Prothromb Time International Ratio 1.0 Activated Partial Thromboplast Time 25.9 Blood Urea Nitrogen 9 Creatinine 0.86 Random Glucose 99 Calcium Level 8.4 Sodium Level 139 Potassium Level 3.5 Chloride Level 105 Carbon Dioxide Level 25.2 Anion Gap 9 Estimat Glomerular Filtration Rate 90 Troponin I LESS THAN 0.02 LESS THAN 0.02 Ethyl Alcohol Level 130 Total Creatine Kinase 512 Creatine Kinase MB 4.6 Creatine Kinase MB % 0.9 Result Diagram: 07/13/17 01107/13/17114 Imaging Last [address] 07/13/17104 Signed Impressions: Service Date/Time: July 01:23 - CONCLUSION: Mild right posterior scalp soft tissue swelling. No fracture or acute intracranial abnormality is identified. Aron Moncada MD Cervical Spine CT 07/13/17104 Signed Impressions: Service Date/Time: July 01:23 - CONCLUSION: There are degenerative changes of the cervical spine, as above. No acute cervical spine abnormality is identified. Aron Moncada MD Radius/Ulna X-Ray 07/13/17 0000 Signed Impressions: Service Date/Time: July 01:32 - CONCLUSION: No acute abnormality is identified. Aron Moncada MD Humerus X-Ray 07/13/17 0000 Signed Impressions: Service Date/Time: July 01:37 - CONCLUSION: No acute abnormality is identified. Aron Moncada MD Chest X-Ray 07/13/17 0000 Signed Impressions: Service Date/Time: July 05:16 - CONCLUSION: Underinflation with atelectasis at the lung bases. Otherwise, no acute finding is identified. Aron Moncada MD Course EKG Normal sinus rhythm, no ST-T segment changes Caprini VTE Risk Assessment Caprini VTE Risk Assessment: Mod/High Risk (score >= 2) Caprini Risk Assessment Model Point Value = 1 Point Value = 2 Point Value = 3 Point Value = 5 Age 41-60 Minor surgery BMI > 25 kg/m2 Swollen legs Varicose veins or History of unexplained or recurrent spontaneous Oral contraceptives or hormone replacement Sepsis (< 1 month) Serious lung disease, including pneumonia (< 1 month) Abnormal pulmonary function Acute myocardial infarction Congestive heart failure (< 1 month) History of inflammatory bowel disease Medical patient at bed rest Age 61-74 Arthroscopic surgery Major open surgery (> 45 min) Laparoscopic surgery (> 45 min) Malignancy Confined to bed (> 72 hours) Immobilizing plaster cast Central venous access Age >= 75 History of VTE Family history of VTE Factor V Leiden Prothrombin [id number] Lupus anticoagulant Anticardiolipin antibodies Elevated serum homocysteine Heparin-induced thrombocytopenia Other congenital or acquired thrombophilia Stroke (< 1 month) Elective arthroplasty Hip, pelvis, or leg fracture Acute spinal cord injury (< 1 month) Prophylaxis Regimen Total Risk Factor Score Risk Level Prophylaxis Regimen 0-1 Low Early ambulation 2 Moderate Order ONE of the following: *Sequential Compression Device (SCD) *Heparin 5000 units SQ BID 3-4 Higher Order ONE of the following medications: *Heparin 5000 units SQ TID *Enoxaparin/Lovenox 40 mg SQ daily (WT < 150 kg, CrCl > 30 mL/min) *Enoxaparin/Lovenox 30 mg SQ daily (WT < 150 kg, CrCl > 10-29 mL/min) *Enoxaparin/Lovenox 30 mg SQ BID (WT < 150 kg, CrCl > 30 mL/min) AND/OR *Sequential Compression Device (SCD) 5 or more Highest Order ONE of the following medications: *Heparin 5000 units SQ TID (Preferred with Epidurals) *Enoxaparin/Lovenox 40 mg SQ daily (WT < 150 kg, CrCl > 30 mL/min) *Enoxaparin/Lovenox 30 mg SQ daily (WT < 150 kg, CrCl > 10-29 mL/min) *Enoxaparin/Lovenox 30 mg SQ BID (WT < 150 kg, CrCl > 30 mL/min) AND *Sequential Compression Device (SCD) Assessment and Plan Assessment and Plan #1 Atypical chest pain-admitted chest pain center. Ruled out with 2 sets of EKGs and cardiac enzymes, third set pending. Seen and evaluated by Dr. Niles Bates. Proceed with Lexiscan this a.m. Also obtain echocardiogram due to reported syncopal episodes and aortic murmur. If both unremarkable plans to discharge later this evening. #2 Tobacco use-strongly encouraged and stressed the importance of tobacco cessation. Instructed to quit smoking #3 Alcohol use-strongly encouraged to quit drinking any amounts of alcohol. Viktoria Grace Jul 13, 2017 08:45
[2017-07-13] MEDS ORDERED: MULTIVITAMIN INJ 10 ML, FOLIC ACID INJ 1 MG in SODIUM CHLORID 0.9% 500 ML INJ 500 ML IV SCH (11:00)
[2017-07-13] MEDS ORDERED: REGADENOSON INJ 0.4 MG/5 ML SYR ONE ×2 (11:18→12:01)
[2017-07-13] MEDS: ASPIRIN 325 MG TAB PO SCH (13:36)
[2017-07-13] MEDS: SODIUM CHLORIDE 0.9% FLUSH 10 ML FLUSH IV FLUSH SCH ×2 (13:36→21:00)
[2017-07-13 14:44] LABS: TROPONIN I LESS THAN 0.02 NG/ML (0.02-0.05)
--- NOTE | 2017-07-13 14:47 | RADRPT ---
EXAM DATE/TIME: 07/13/2017 11:28 [place] COMPARISON: MYOCARDIAL PERF PHARM SPECT, GATED W/EF, August 07, 2014, 9:04. INDICATIONS : Mid chest pain for one day. Angina. DOSE: 26.3 mCi Tc99m Myoview at stress. 8.7 mCi Tc99m Myoview at rest. 0.4 mg Lexiscan STRESS SYMPTOMS: Shortness of breath. EJECTION FRACTION: > 70% MEDICAL HISTORY : Gastroesophageal reflux disease. Stroke SURGICAL HISTORY : Tonsillectomy. ENCOUNTER: Initial ACUITY: 1 day PAIN SCALE: 8/10 LOCATION: Midsternal chest TECHNIQUE: The patient underwent pharmacologic stress with infusion of prescribed dose. Continuous ECG tracing was monitored during stress. Gated SPECT imaging was performed after stress and conventional SPECT i maging was performed at rest. The examination was performed on a SPECT/CT scanner, both attenuation and non-corrected datasets were reviewed. FINDINGS: DISTRIBUTION: The maximum perfused segment at stress is in the septal wall. PERFUSION STUDY: The pattern of perfusion at stress is within normal limits. GATED STUDY: There is intact wall motion and thickening without hypokinetic or dyskinetic segments. CONCLUSION: 1. No reversible perfusion defect to suggest stress-induced myocardial ischemia. RISK CATEGORY: Low (<1% Annual Mortality Rate) Beto Lainez MD on July 13, 2017 at 14:43 Board Certified Radiologist. This report was verified electronically.
[2017-07-14 00:25] VITALS: BP 122/76; PULSE 85; RESP 18; TEMP 98; O2SAT 97
[2017-07-14 04:17] VITALS: BP 134/75; PULSE 83; RESP 18; TEMP 98; O2SAT 97
[2017-07-14 07:46] VITALS: PULSE 69
[2017-07-14 08:30] VITALS: BP 140/88; PULSE 80; RESP 18; TEMP 98.2; O2SAT 96
[2017-07-14] MEDS ORDERED: THIAMINE HCL 100 MG TAB PO SCH (09:00)
[2017-07-14] MEDS ORDERED: FOLIC ACID 1 MG TAB PO SCH (09:00)
[2017-07-14] MEDS ORDERED: MULTIVITAMINS/MINERALS THERAPEUTIC TAB PO SCH (09:00)
[2017-07-14] MEDS: ASPIRIN 325 MG TAB PO SCH (09:32)
[2017-07-14] MEDS: SODIUM CHLORIDE 0.9% FLUSH 10 ML FLUSH IV FLUSH SCH (09:33)
[2017-07-14] MEDS ORDERED: INFLUENZA VIRUS VACCINE (QUADRIVALENT) 0.5 ML SYR IM ONE (10:00)
--- NOTE | 2017-07-14 11:09 | PD.CARD.PN ---
Subjective Subjective Remarks No complaints overnight. No further chest pain. Objective Medications Current Medications Medications (Trade) Dose Ordered Sig/Galileo Route Start Time Stop Time Status Last Admin (NS Flush) 2 ml UNSCH PRN IV FLUSH 07/13/17 04:15 (NS Flush) 2 ml BID IV FLUSH 07/13/17 09:00 07/14/17 09:33 (Tylenol) 500 mg Q4H PRN PO 07/13/17 08:45 07/13/17 13:36 (Zofran Inj) 4 mg Q6H PRN IV PUSH 07/13/17 08:45 (Nitrostat Sl) 0.4 mg Q5M PRN SL 07/13/17 08:45 (Aspirin) 325 mg DAILY PO 07/13/17 09:00 07/14/17 09:32 (Romazicon Inj) 0.2 mg Q1M PRN IV PUSH 07/13/17 08:45 (Ativan) 1 mg Q4H PRN PO 07/13/17 08:45 07/13/17 13:36 (Ativan Inj) 1 mg Q4H PRN IV PUSH 07/13/17 08:45 (Ativan) 2 mg Q2H PRN PO 07/13/17 08:45 (Ativan Inj) 2 mg Q2H PRN IV PUSH 07/13/17 08:45 (Ativan Inj) 2 mg Q1H PRN IV PUSH 07/13/17 08:45 (Ativan Inj) 2 mg Q15M PRN IV PUSH 07/13/17 08:45 (Folate) 1 mg DAILY PO 07/14/17 09:00 07/19/17 08:59 07/14/17 09:32 (Vitamin B1) 100 mg DAILY PO 07/14/17 09:00 07/14/17 09:32 (Theragran M Tab) 1 tab DAILY PO 07/14/17 09:00 07/19/17 08:59 07/14/17 09:32 Vital Signs / I&O Vital Signs Date Time Temp Pulse Resp B/P (MAP) Pulse Ox O2 Delivery O2 Flow Rate FiO2 07/14/17 08:30 98.2 80 18 140/88 (105) 96 07/14/17 07:46 69 07/14/17 04:17 98.0 83 18 134/75 (94) 97 07/14/17 00:25 98.0 85 18 122/76 (91) 97 07/13/17 23:00 68 07/13/17 16:13 79 07/13/17 15:01 98.3 83 18 137/78 (97) 97 I/O 07/13/17 07/13/17 07/13/17 07/14/17 07/14/17 07/14/17 07:00 15:00 23:00 07:00 15:00 23:00 Intake Total 0 ml Output Total 275 ml Balance -275 ml Intake Oral 0 ml Output Urine Total 275 ml Physical Exam GENERAL: Alert WN, WD, NAD, pleasant, male HEAD: NC, AT, posterior head laceration EYES: Sclera clear, conjunctiva without injection, pupils equal and round ENT: Mucous membranes pink and moist, no nasal discharge or bleeding CV: RRR, 2/6 systolic murmur, rub, gallop, no JVD, S1-S2 no S3-S4. RESP: Clear lungs throughout bilateral, no crackles, wheeze, rhonchi, symmetrical chest rise, nonlabored, able to speak in full sentences EXT: Pulses +24, no dependent edema MS: Normal tone 4 extremities, no obvious deformities, full range of motion PSYCH: A+O 3, pleasant affect, appropriate speech, appropriate mood and affect , insight and judgment Laboratory Laboratory Tests Test 07/13/17 14:03 Total Creatine Kinase 540 U/L Creatine Kinase MB 2.8 NG/ML Creatine Kinase MB % 0.5 % Troponin I LESS THAN 0.02 NG/ML Imaging Last [address] 07/13/17104 Signed Impressions: Service Date/Time: July 01:23 - CONCLUSION: Mild right posterior scalp soft tissue swelling. No fracture or acute intracranial abnormality is identified. Aron Moncada MD Cervical Spine CT 07/13/17104 Signed Impressions: Service Date/Time: July 01:23 - CONCLUSION: There are degenerative changes of the cervical spine, as above. No acute cervical spine abnormality is identified. Aron Moncada MD Radius/Ulna X-Ray 07/13/17 0000 Signed Impressions: Service Date/Time: July 01:32 - CONCLUSION: No acute abnormality is identified. Aron Moncada MD Myocardial Perfusion Scan Nuc Med 07/13/17 Signed Impressions: Service Date/Time: July 11:28 - CONCLUSION: 1. No reversible perfusion defect to suggest stress-induced myocardial ischemia. RISK CATEGORY: Low (<1%% Annual Mortality Rate) Beto Lainez MD Humerus X-Ray 07/13/17 Signed Impressions: Service Date/Time: July 01:37 - CONCLUSION: No acute abnormality is identified. Aron Moncada MD Chest X-Ray 07/13/17 Signed Impressions: Service Date/Time: July 05:16 - CONCLUSION: Underinflation with atelectasis at the lung bases. Otherwise, no acute finding is identified. Aron Moncada MD Assessment and Plan Assessment and Plan #1 Atypical chest pain-admitted chest pain center. Lexiscan unremarkable. Awaiting 2d echo. Plans to discharge home after echocardiogram completed. #2 Tobacco use-strongly encouraged and stressed the importance of tobacco cessation. Instructed to quit smoking #3 Alcohol use-strongly encouraged to quit drinking any amounts of alcohol. Viktoria Grace Jul 14, 2017 11:09
[2017-07-14 12:15] VITALS: PULSE 74
--- NOTE | 2017-07-14 16:16 | HHI.DCPOC ---
Discharge Care Plan Diagnosis: (1) Alcohol use (2) Atypical chest pain (3) Tobacco abuse Goals to Promote Your Health * To prevent worsening of your condition and complications * To maintain your health at the optimal level Directions to Meet Your Goals Take your medications as prescribed Follow your dietary instruction Follow activity as directed Keep your appointments as scheduled Take your immunizations and boosters as scheduled If your symptoms worsen call your PCP, if no PCP go to Urgent Care Center or Emergency Room Smoking is Dangerous to Your Health. Avoid second hand smoke Call the 24-hour hour crisis hotline for domestic abuse at Viktoria Grace Jul 14, 2017 16:16
--- NOTE | 2017-07-14 16:22 | EKG ---
Date Performed: 07/13/2017 Time Performed: 05:30:00 PTAGE: 62 years EKG: Sinus rhythm POSSIBLE RIGHT VENTRICULAR CONDUCTION DELAY BORDERLINE ECG NO PREVIOUS TRACING DOCTOR: Niles Bates Interpretating Date/Time 07/14/2017 16:20:01
--- NOTE | 2017-07-14 16:23 | EKG ---
Date Performed: 07/13/2017 Time Performed: 03:29:18 PTAGE: 62 years EKG: Sinus rhythm ABNORMAL ECG PREVIOUS TRACING : 09/23/2014 02.56 Since previous tracing, no significant change noted DOCTOR: Niles Bates Interpretating Date/Time 07/14/2017 16:21:07
--- NOTE | 2017-07-14 16:30 | TR ---
Date Performed: 07/13/2017 Time Performed: 11:52:21 DOCTOR: Niles Bates DRUG LIST: CLINICAL HISTORY: REASON FOR TEST: REASON FOR ENDING: OBSERVATION: CONCLUSION: Lexiscan stress test was performed under standard four minute protocol. Radionuclid e was injected one minute prior to ending the test. No electrocardiographic abormalities were present to suggest ischemia. Nuclear imaging and interpretation are pending. COMMENTS: Lexiscan stress test was performed under standard four minute protocol. Radionuclide was injected one minute prior to ending the test. No electrocardiographic abormalities were present t o suggest ischemia. Nuclear imaging and interpretation are pending.
[2017-07-14 16:51] VITALS: BP 150/82; PULSE 70; RESP 18; TEMP 98.2; O2SAT 96
--- NOTE | 2017-07-14 18:38 | ECHRPT ---
Indication: cp CONCLUSIONS Technically difficult study. In limited views, the left ventricular systolic function is normal with an estimated ejection fracti on in the range of 55-60%. Left ventricular diastolic function parameters are normal. [id number] mitral valve regurgitation. There is mild tricuspid valve regurgitation. BP: / HR: Rhythm: MEASUREMENTS (Male / Female) Normal Values Technical Quality:Technically difficult study 2D ECHO LV Diastolic Diameter PLAX 4.4 cm 4.2 - 5.9 / 3.9 - 5.3 cm LV Systolic Diameter PLAX 3.3 cm IVS Diastolic Thickness 1.1 cm 0.6 - 1.0 / 0.6 - 0.9 cm LVPW Diastolic Thickness 1.0 cm 0.6 - 1.0 / 0.6 - 0.9 cm LV Relative Wall Thickness 0.5 RV Internal Dim ED PLAX 3.2 cm M-MODE Aortic Root Diameter MM 3.0 cm LA Systolic Diameter MM 2.6 cm LA Ao Ratio MM 0.9 AV Cusp Separation MM 1.7 cm DOPPLER Mitral E Point Velocity 68.6 cm/s Mitral A Point Velocity 79.0 cm/s Mitral E to A Ratio 0.9 LV E' Lateral Velocity 13.2 cm/s Mitral E to LV E' Lateral Ratio 5.2 LV E' Septal Velocity 11.4 cm/s Mitral E to LV E' Septal Ratio 6.0 TR Peak Velocity 251.0 cm/s TR Peak Gradient 25.2 mmHg Right Atrial Pressure 10.0 mmHg Pulmonary Artery Systolic Pressu 35.2 mmHg Right Ventricular Systolic Press 35.2 mmHg FINDINGS LEFT VENTRICLE In limited views, the left ventricular systolic function is normal with an estimated ejection fracti on in the range of 55-60%. There was limited left ventricular wall motion assessment due to poor endocardial visualization. Left ventricular diastolic function parameters are normal. RIGHT VENTRICLE Normal right ventricular size and systolic function. LEFT ATRIUM The left atrial size is normal. RIGHT ATRIUM The right atrial size is normal. ATRIAL SEPTUM Normal atrial septal thickness. AORTA The aortic root and proximal ascending aorta are normal in size on limited imaging. MITRAL VALVE Structurally normal mitral valve. [id number] mitral valve regurgitation. No mitral valve stenosis. AORTIC VALVE No aortic valve stenosis or regurgitation. TRICUSPID VALVE Structurally normal tricuspid valve. There is mild tricuspid valve regurgitation. The estimated pulmonary arterial pressure is 35.2 mmHg. PULMONARY VALVE No pulmonary valve regurgitation or stenosis. VESSELS The inferior vena cava is normal in size. PERICARDIUM No pericardial effusion. Jd Arcos DO (Electronically Signed) Final Date:14 July 2017 18:37
== END 2017-07-14 18:56 | disposition home or self-care (01) ==
LOC: NEPC 00:27 → NEDA 04:10 → NEPHCDU 13:19
PROVIDERS: ADMIT Internal Medicine Cardiovascular Disease; ATTEND Internal Medicine Cardiovascular Disease
DX: R07.89 Other chest pain (principal); S00.83XA Contusion of other part of head, initial encounter; S01.01XA Laceration without foreign body of scalp, initial encounter; R94.31 Abnormal electrocardiogram [ECG] [EKG]; F10.10 Alcohol abuse, uncomplicated; R55 Syncope and collapse; J98.11 Atelectasis; M79.601 Pain in right arm; I20.9 Angina pectoris, unspecified; R11.0 Nausea; E78.00 Pure hypercholesterolemia, unspecified; K21.9 Gastro-esophageal reflux disease without esophagitis; F17.200 Nicotine dependence, unspecified, uncomplicated; M19.90 Unspecified osteoarthritis, unspecified site; Z85.51 Personal history of malignant neoplasm of bladder; Z86.73 Personal history of transient ischemic attack (TIA), and cerebral infarction without residual deficits; Z82.49 Family history of ischemic heart disease and other diseases of the circulatory system; W19.XXXA Unspecified fall, initial encounter
CPT/HCPCS: 12001; 70450; 71045; 72125; 73060; 73090; 78452; 80048; 80307; 82550; 82552; 82948; 84484; 85025; 85610; 85730; 86850; 86900; 86901; 90471; 90715; 93005; 93017; 93306; 96365; 96375; 99285; A9502; G0378; J2405; J2785; J7040

== ENCOUNTER 2017-07-30 11:31 | Emergency (ER) | payer SELFPAY ==
[~2017-07-30] VITALS: Ht 182.9 cm; Wt 84.0 kg
[2017-07-30 11:33] VITALS: BP 129/69; PULSE 99; RESP 16; TEMP 98.8; O2SAT 96
--- NOTE | 2017-07-30 11:57 | PD ---
HPI . Staple removal Chief Complaint: Wound/Suture/Staple Re-Check Time Seen by Provider: 11:54 Travel History International Travel<30 days: No Contact w/Intl Traveler<30days: No Traveled to known affect area: No History of Present Illness HPI Patient presents requesting staple removal from his scalp. [place] were placed up out days ago. His only complaint is that they are driving him crazy. PFSH Past Medical History Arthritis: Yes Asthma: No Blood Disorders: No Anxiety: No Depression: No Heart Rhythm Problems: No Cancer: Yes (bladder tumor. ) Cardiac Catheterization: No Cardiovascular Problems: Yes (stress test 3-4 years ago) High Cholesterol: Yes Chemotherapy: No Chest Pain: Yes Congestive Heart Failure: No COPD: No Cerebrovascular Accident: Yes Diabetes: No Diminished Hearing: No Endocrine: No Gastrointestinal Disorders: Yes (GERD) GERD: Yes Genitourinary: Yes (BLOODY URINE) Hepatitis: No Hiatal Hernia: No Immune Disorder: No Musculoskeletal: Yes (2 RUPTURED DISC LOWER BACK, 1 RUPTURED DISC NECK) Neurologic: Yes (HX "MINI" STROKE) Psychiatric: No Reproductive: No Respiratory: No Immunizations Current: Yes Radiation Therapy: No Sleep Apnea: No Thyroid Disease: No Tetanus Vaccination: < 5 Years Influenza Vaccination: No PNEUMOCCOCAL Vaccine (Year): 2 Past Surgical History Abdominal Surgery: No AICD: No Body Medical Devices: NONE Cardiac Surgery: No Coronary Artery Bypass Graft: No Ear Surgery: No Endocrine Surgery: No Eye Surgery: No Genitourinary Surgery: Yes (TUMOR REMOVAL FROM BLADDER) Joint Replacement: No Oral Surgery: Yes (TONSILLECTOMY) Pacemaker: No Thoracic Surgery: No Other Surgery: Yes (bladder tumor removal) Family History Family Myocardial Infarction: Yes (MOM AND DAD) Social History Alcohol Use: Yes (2-3 X WK) Tobacco Use: Yes (1-1/2 PPD X 35 YEARS) Substance Use: No Allergies-Medications (Allergen,Severity, Reaction): Coded Allergies: *MDRO Multi-Drug Resistant Organism (Verified Allergy, Unknown, 07/30/17) MRSA PATIENT STATES HE HAS NEVER HAD MRSA Reported Meds & Prescriptions Reported Meds & Active Scripts Active No Active Prescriptions or Reported Medications Review of Systems Except as stated in HPI: all other systems reviewed are Neg Physical Exam Narrative GENERAL: Awake and alert and in no acute distress. SKIN: Warm and dry. He has a scabbed wound on the right side of his scalp with no evidence of infection such as drainage, redness, warmth or swelling. HEAD: Normocephalic/atraumatic. EYES: Pupils are equal. Extraocular movements are intact. NECK: Normal range of motion. CARDIOVASCULAR: Regular rate and rhythm. RESPIRATORY: Nonlabored respirations. MUSCULOSKELETAL: Atraumatic. NEUROLOGICAL: Nonfocal. PSYCHIATRIC: Appropriate mood and affect. Data Data Last Documented VS Vital Signs Date Time Temp Pulse Resp B/P (MAP) Pulse Ox O2 Delivery O2 Flow Rate FiO2 07/30/17 11:33 98.8 99 16 129/69 (89) 96 Orders Orders Ed Discharge Order (07/30/17 11:55) MDM Medical Decision Making Medical Screen Exam Complete: Yes Emergency Medical Condition: Yes Differential Diagnosis My differential diagnosis of a wound check includes but is not limited to normal healing, delayed healing, localized wound infection, cellulitis, sepsis Narrative Course Patient presents requesting staple removal from his scalp. This wound is well- healed with no sign of infection. 4 tiffanie were removed. Diagnosis Primary Impression: Removal of staple Patient Instructions: General Instructions Departure Forms: Tests/Procedures Scripts No Active Prescriptions or Reported Meds Disposition: 01 DISCHARGE HOME Condition: Stable Sheridan Valladares MD Jul 30, 2017 11:57
== END 2017-07-30 12:10 | disposition home or self-care (01) ==
LOC: PHEFT 11:31
DX: Z48.02 Encounter for removal of sutures (principal); M19.90 Unspecified osteoarthritis, unspecified site; E78.00 Pure hypercholesterolemia, unspecified; K21.9 Gastro-esophageal reflux disease without esophagitis; F17.200 Nicotine dependence, unspecified, uncomplicated; Z86.73 Personal history of transient ischemic attack (TIA), and cerebral infarction without residual deficits
CPT/HCPCS: 99281

== ENCOUNTER 2018-02-11 18:36 | Observation (INO) ==
[2018-02-11] MEDS ORDERED: Sod Chloride 0.9% Inj 1,000 ML IV.CONT SCH (19:00)
--- NOTE | 2018-02-11 19:11 | ED ---
HPI General Chief complaint: Dizziness Stated complaint: Dizziness/Slurred speech/L Leg tingling/vertigo Source: patient Mode of arrival: wheelchair Limitations: no limitations History of Present Illness HPI narrative: The patient is a 62-year-old male who presents to the emergency department for weakness of the left upper and lower extremity. The patient states his symptoms started earlier today at approximately 10:30 AM when he went to the store. The patient states he developed numbness of the left ankle and foot which has proceeded to encompass the entire left leg. He now complains of weakness of the left lower extremity with difficulty ambulating. The patient also complains of feeling dizzy, off balance, with difficulty ambulating. The patient has a history of prior TIA but denies any history of chronic neurologic deficits. The patient denies taking any anticoagulants or blood thinners. The patient believes his symptoms started prior to 10:30 AM. The patient does not currently have a primary physician. He does admit to drinking 1 beer earlier today. He denies any difficulty swallowing or difficulty with his speech. MD complaint: Left-sided weakness and numbness Onset (ago): hour(s) Location: left, upper extremity and lower extremity Related Data Allergies Allergy/AdvReac Type Severity Reaction Status Date / Time *MDRO Multi-Drug Resistant Allergy Unknown Uncoded 07/30/17 11:35 Organism Review of Systems ROS: all other systems reviewed are negative [facility] Medical History Medical History Bladder cancer (Acute) Vertigo (Acute) Social History Social History Substance History: No History of Abuse Second Hand Smoke Exposure: No Smoking Status: Current every day smoker Tobacco Type: Cigarettes How Often Do You Have a Drink Containing Alcohol: 4 or more times a week Recent Travel in [facility] within the Last 8 Weeks: No Recent Out of Country Travel within the Last 8 Weeks: No Exam Narrative Exam Narrative: GENERAL: Awake, alert, pleasant 62-year-old male who appears his stated age and is in no acute respiratory distress. SKIN: Focused skin assessment warm/dry. HEAD: Atraumatic. Normocephalic. EYES: Pupils equal and round. Injection bilaterally. Pupils are 2 mm bilateral and reactive. EOMs are intact. Patient is able to see fingers at a distance of 2 feet without difficulty. ENT: No nasal bleeding or discharge. No visible teeth. NECK: Trachea midline. No JVD. CARDIOVASCULAR: Regular rate and rhythm. No murmur appreciated. RESPIRATORY: No accessory muscle use. Clear to auscultation. Breath sounds equal bilaterally. GASTROINTESTINAL: Abdomen soft, non-tender, nondistended. MUSCULOSKELETAL: No obvious deformities. No clubbing. No cyanosis. No edema. NEUROLOGICAL: Awake and alert. EOMs are intact. Patient is able to see fingers at a distance of 2 feet without difficulty. Tongue is midline. Smile is symmetric. Sensation is symmetric in V1, V2, V3 distribution. No drift of the upper extremities. Mild drift to the left lower extremity, sensation is diminished to soft touch in the left lower extremity and left upper extremity. Finger to nose is normal. Heel to delgado is normal. Patient is oriented 3. Diminished strength on the left lower extremity with plantar flexion and extension left knee. Diminished strength with farm helper on the left upper extremity as well as flexion and extension of the left elbow. PSYCHIATRIC: Appropriate mood and affect; insight and judgment normal. Course Initial Documented Vital Signs Temperature 98.3 F 02/11/18 18:40 Pulse Rate 84 02/11/18 18:40 Respiratory Rate 20 02/11/18 18:40 Blood Pressure 114/71 02/11/18 18:40 Pulse Oximetry 92 L 02/11/18 18:40 Last Documented Vital Signs Temperature 98.3 F 02/11/18 18:40 Pulse Rate 67 02/11/18 19:52 Respiratory Rate 20 02/11/18 19:52 Blood Pressure 139/77 02/11/18 19:52 Pulse Oximetry 95 02/11/18 19:52 Medical Decision Making MDM Narrative Medical decision making narrative: IV was established, labs are drawn and sent, and the patient was placed on cardiac telemetry monitoring and continuous pulse oximetry monitoring. EKG was ordered and interpreted. CT of the brain was obtained. The patient is outside of the window for IV TPA, his stroke scale is 2, therefore, no CTA was ordered. I doubt there would be interventional radiology intervention with a stroke scale of 2. CT of the brain was negative. The patient passed a swallow study, therefore, was administered aspirin 162 mg orally. The patient has left-sided weakness and numbness with a stroke scale of 2, therefore, no TPA was administered as his symptoms started prior to 10:30 AM and no CTA was performed as his stroke scale was less than 6. The patient does have a slightly elevated alcohol level. The patient may benefit from echocardiogram, ultrasound of the carotids, possibly MRI of the brain. Therefore, the patient will be 23 hour observation for acute neurologic deficit to evaluate for possible CVA. Therefore, the on-call medical service was paged for 23 hour observation. I discussed the patient with Dr. Cheney who agrees with 23 hour observation. Medical Screen Exam Complete: Yes Emergency Medical Condition: Yes Differential Diagnosis Differential Diagnosis: Differential diagnoses include CVA, TIA, intracranial hemorrhage, neuropathy, syringomyelia, hyponatremia, alcohol intoxication. Lab Data Lab results reviewed: Yes I reviewed the patient's lab results. Lab results narrative: Labs are noted. Alcohol level was 158. Result diagrams: 02/11/18 19:00 02/11/18 19:00 Lab Results 02/11/18 02/11/18 02/11/18 Range/Units 19:00 19:00 19:00 CBC w Diff Auto diff final WBC 6.9 (4.0-11.0) th/mm3 RBC 4.31 L (4.50-5.90) mil/mm3 Hgb 15.0 (13.0-17.0) gm/dL Hct 44.0 (39.0-51.0) % MCV 102.1 H (80.0-100.0) fL MCH 34.8 H (27.0-34.0) pg MCHC 34.1 (32.0-36.0) % RDW 12.8 (11.6-17.2) % Plt Count 254 (150-450) th/mm3 MPV 7.0 (7.0-11.0) fL Neut % (Auto) 60.8 (16.0-70.0) % Lymph % (Auto) 28.6 (9.0-44.0) % Nicollet % (Auto) 4.8 (0.0-8.0) % Eos % (Auto) 4.5 H (0.0-4.0) % Baso % (Auto) 1.3 (0.0-2.0) % Neut # (Auto) 4.2 (1.8-7.7) th/mm3 Lymph # (Auto) 2.0 (1.0-4.8) th/mm3 Nicollet # (Auto) 0.3 (0.0-0.9) th/mm3 Eos # (Auto) 0.3 (0.0-0.4) th/mm3 Baso # (Auto) 0.1 (0.0-0.2) th/mm3 WBC Differential . Differential Comment . PT 9.7 L (9.8-11.6) sec INR 1.0 Ratio APTT 28.4 (24.3-30.1) sec Sodium 140 (136-145) meq/L Potassium 3.6 (3.5-5.1) meq/L Chloride 106 (98-107) meq/L Carbon Dioxide 23.2 (21.0-32.0) meq/L Anion Gap 11 (5-15) meq/L BUN 7 (7-18) mg/dL Creatinine 0.87 (0.60-1.30) mg/dL Estimated GFR 89 (>89) mL/min POC Glucose (68-110) mg/dl Random Glucose 99 (74-106) mg/dL Calcium 8.7 (8.5-10.1) mg/dL Total Bilirubin 0.3 (0.2-1.0) mg/dL AST 29 (15-37) U/L ALT 24 (12-78) U/L Alkaline Phosphatase 64 (45-117) U/L Total Creatine Kinase 314 H (39-308) U/L CK-MB (CK-2) 2.6 (0.5-3.6) ng/mL CK-MB (CK-2) % 0.8 (0.0-4.0) % Troponin I Less than 0.02 L (0.02-0.05) ng/mL Total Protein 7.9 (6.4-8.2) g/dL Albumin 3.9 (3.4-5.0) g/dL Serum Alcohol 158 H (0-5) mg/dL 02/11/18 Range/Units 19:32 CBC w Diff WBC (4.0-11.0) th/mm3 RBC (4.50-5.90) mil/mm3 Hgb (13.0-17.0) gm/dL Hct (39.0-51.0) % MCV (80.0-100.0) fL MCH (27.0-34.0) pg MCHC (32.0-36.0) % RDW (11.6-17.2) % Plt Count (150-450) th/mm3 MPV (7.0-11.0) fL Neut % (Auto) (16.0-70.0) % Lymph % (Auto) (9.0-44.0) % Nicollet % (Auto) (0.0-8.0) % Eos % (Auto) (0.0-4.0) % Baso % (Auto) (0.0-2.0) % Neut # (Auto) (1.8-7.7) th/mm3 Lymph # (Auto) (1.0-4.8) th/mm3 Nicollet # (Auto) (0.0-0.9) th/mm3 Eos # (Auto) (0.0-0.4) th/mm3 Baso # (Auto) (0.0-0.2) th/mm3 WBC Differential Differential Comment PT (9.8-11.6) sec INR Ratio APTT (24.3-30.1) sec Sodium (136-145) meq/L Potassium (3.5-5.1) meq/L Chloride (98-107) meq/L Carbon Dioxide (21.0-32.0) meq/L Anion Gap (5-15) meq/L BUN (7-18) mg/dL Creatinine (0.60-1.30) mg/dL Estimated GFR (>89) mL/min POC Glucose 97 (68-110) mg/dl Random Glucose (74-106) mg/dL Calcium (8.5-10.1) mg/dL Total Bilirubin (0.2-1.0) mg/dL AST (15-37) U/L ALT (12-78) U/L Alkaline Phosphatase (45-117) U/L Total Creatine Kinase (39-308) U/L CK-MB (CK-2) (0.5-3.6) ng/mL CK-MB (CK-2) % (0.0-4.0) % Troponin I (0.02-0.05) ng/mL Total Protein (6.4-8.2) g/dL Albumin (3.4-5.0) g/dL Serum Alcohol (0-5) mg/dL Imaging Data Attestation: I personally reviewed and interpreted this imaging study as follows : My impression: Chest x-ray reveals no acute cardiopulmonary disease. Radiologist's impression: Chest X-Ray 02/11/18 18:59 CONCLUSION: No acute cardiopulmonary disease. Head CT 02/11/18 19:00 CONCLUSION: 1. Stable negative noncontrast head CT. . ECG Data EKG Prior to Arrival: No Attestation: I personally reviewed and interpreted this ECG as follows: Interpretation: EKG reveals normal sinus rhythm with a rate of 75. No ischemic changes noted. Discharge Plan Discharge Disposition Patient Disposition: 30 Still Patient Discharge Condition Condition: Stable Discharge Details Diagnosis: Acute focal neurological deficit Physicians Team ED Provider: Zeyad Abrams Primary Care Provider: Primary Care Meena Dalton Status ED Status: Pending Admission
[2018-02-11 19:13] LABS: Baso # (Auto) 0.1 th/mm3 (0.0-0.2); Baso % (Auto) 1.3 % (0.0-2.0); Eos # (Auto) 0.3 th/mm3 (0.0-0.4); Eos % (Auto) 4.5 % (0.0-4.0); Lymph % (Auto) 28.6 % (9.0-44.0); Mean Corpuscular HGB Conc 34.1 % (32.0-36.0); Mean Corpuscular Hemoglobin 34.8 pg (27.0-34.0); Mean Corpuscular Volume 102.1 fL (80.0-100.0); Mono # (Auto) 0.3 th/mm3 (0.0-0.9); Mono % (Auto) 4.8 % (0.0-8.0); Neut # (Auto) 4.2 th/mm3 (1.8-7.7); Neut % (Auto) 60.8 % (16.0-70.0); Platelet Count 254 th/mm3 (150-450); Red Blood Count 4.31 mil/mm3 (4.50-5.90); Red Cell Distribution Width 12.8 % (11.6-17.2); White Blood Count 6.9 th/mm3 (4.0-11.0)
[2018-02-11 19:19] LABS: Chloride 106 meq/L (98-107); Potassium 3.6 meq/L (3.5-5.1); Sodium 140 meq/L (136-145)
[2018-02-11 19:23] LABS: Calcium 8.7 mg/dL (8.5-10.1)
[2018-02-11 19:24] LABS: Albumin 3.9 g/dL (3.4-5.0); Anion Gap 11 meq/L (5-15); Blood Urea Nitrogen 7 mg/dL (7-18); Carbon Dioxide 23.2 meq/L (21.0-32.0); Glucose,Random 99 mg/dL (74-106)
[2018-02-11 19:26] LABS: Activated Partial Thrombo Time 28.4 sec (24.3-30.1); Prothrombin Time 9.7 sec (9.8-11.6)
[2018-02-11 19:27] LABS: Alanine Aminotransferase 24 U/L (12-78); Aspartate Aminotransferase 29 U/L (15-37)
[2018-02-11 19:28] LABS: Glomerular Filtration Rate 89 mL/min (>89)
--- NOTE | 2018-02-11 19:28 | CT ---
EXAM DATE: 02/11/2018 7:23 PM EDT AGE/SEX: 62 years / Male INDICATIONS: Slurred speech. Dizziness. Possible transient ischemic attack. CLINICAL DATA: This is the patient's initial encounter. Patient reports that signs and symptoms have been present for 1 day and indicates a pain score of Nonresponsive. MEDICAL/SURGICAL HISTORY: . . RADIATION DOSE: 56.35 CTDI (mGy) COMPARISON: [facility] – [place], [place] BRAIN W/O CONTRAST, 07/13/2017. . TECHNIQUE: CT of the head without contrast. Using automated exposure control and adjustment of the mA and/or kV according to patient size, radiation dose was kept as low as reasonably achievable to ob tain optimal diagnostic quality images. DICOM format image data is available electronically for revi ew and comparison. FINDINGS: Cerebrum: There is diffuse moderate atrophic change again noted with sulcal and ventricular prominen ce. No evidence of midline shift, mass lesion, hemorrhage or acute infarction. No extraaxial fluid c ollections are seen. Posterior Fossa: The cerebellum and brainstem are intact. The 4th ventricle is midline. The cerebe llopontine angle is unremarkable. Extracranial: The visualized portion of the orbits is intact. Skull: The calvaria is intact. No evidence of skull fracture. CONCLUSION: 1. Stable negative noncontrast head CT. . Electronically signed by: Leon Sanchez MD 02/11/2018 7:27 PM EDT
[2018-02-11 19:29] LABS: Total Protein 7.9 g/dL (6.4-8.2)
[2018-02-11 19:30] LABS: Alkaline Phosphatase 64 U/L (45-117); Creatine Kinase 314 U/L (39-308)
[2018-02-11 19:31] LABS: Alcohol 158 mg/dL (0-5)
[2018-02-11 19:43] LABS: CKMB Percent 0.8 % (0.0-4.0); Creatine Kinase MB 2.6 ng/mL (0.5-3.6)
--- NOTE | 2018-02-11 19:52 | XR ---
EXAM DATE: 02/11/2018 7:34 PM EDT AGE/SEX: 62 years / Male INDICATIONS: Shortness of breath. CLINICAL DATA: This is the patient's initial encounter. Patient reports that signs and symptoms have been present for 1 day and indicates a pain score of 0/10. MEDICAL/SURGICAL HISTORY: Cardiovascular disease. None. [place] [facility] [place]. . FINDINGS: A single AP view of the chest demonstrates the lungs to be symmetrically aerated without evidence of mass, infiltrate or effusion. The cardiomediastinal contours are unremarkable. Osseous structures a re intact with old healed right midclavicular fracture. Overlying echocardiogram leads are present. CONCLUSION: No acute cardiopulmonary disease. Electronically signed by: Leon Sanchez MD 02/11/2018 7:50 PM EDT
[2018-02-11] MEDS ORDERED: Dextrose 50% in Water 50 ML Vial IV.PUSH PRN (20:03)
[2018-02-11] MEDS ORDERED: Bisacodyl 10 MG Supp RECTAL PRN (20:05)
[2018-02-11] MEDS ORDERED: Acetaminophen 325 MG Tablet PO PRN (20:05)
[2018-02-11 21:35] LABS: Bilirubin,Urine Negative (Negative); Clarity,Urine Clear (Clear); Color,Urine Yellow (Yellw/Straw); Glucose,Urine (UA) Negative (Negative); Leukocyte Esterase,Urine Negative (Negative); Nitrite,Urine Negative (Negative); PH,Urine 5.5 (5.0-8.5); Specific Gravity,Urine Less/Equal 1.005 (1.002-1.035); Urobilinogen,Urine 0.2 mg/dL (Less than 2)
[2018-02-11 21:39] LABS: RBC,Urine 0-3 /hpf (0-3); Squamous Epithelial Cell,Urine 0-5 /hpf (0-5); WBC,Urine 0-5 /hpf (0-5)
[2018-02-11] MEDS: Senna/Docusate Sodium 8.6/50 MG Tablet PO SCH (23:04)
[2018-02-11] MEDS: Insulin NovoLOG Aspart Correctional Sugar Inj SQ SCH (23:07)
[2018-02-12] MEDS: Insulin NovoLOG Aspart Correctional Sugar Inj SQ SCH ×3 (09:50→22:44)
[2018-02-12] MEDS: Senna/Docusate Sodium 8.6/50 MG Tablet PO SCH ×2 (09:51→20:42)
--- NOTE | 2018-02-12 11:53 | MR ---
EXAM DATE: 02/12/2018 11:47 AM EDT AGE/SEX: 62 years / Male INDICATIONS: Left sided weakness. Vertigo. CLINICAL DATA: This is the patient's initial encounter. Patient reports that signs and symptoms have been present for 2 days and indicates a pain score of 0/10. MEDICAL/SURGICAL HISTORY: Diabetes mellitus type II. Hypertension. Transient ischemic attack. Bladder ca Tonsillectomy. Bladder bx. COMPARISON: [facility], CT HEAD W/O CONTRAST, 02/11/2018. . TECHNIQUE: Multiplanar, multisequence examination of the brain was performed without contrast. FINDINGS: Cerebrum: Focal encephalomalacia with loss of volume and underlying T2 hyperintensity is identified in the left posterior parietal-occipital region. This can be identified on CT. There are no character istic findings of acute infarct or hemorrhage. Generalized enlargement of the CSF spaces is noted. White Matter: Small scattered signal abnormalities are seen in the white matter. Posterior Fossa: The cerebellum and brainstem are intact. The 4th ventricle is midline. The cerebel lopontine angle is unremarkable. The cerebellar tonsils are normal in position. Diffusion Imaging: No focal areas of restricted diffusion are seen. No evidence of acute infarction . Extracranial: The visualized portions of the orbits and paranasal sinuses are unremarkable. CONCLUSION: 1. Left posterior parietal occipital encephalomalacia. 2. No evidence of acute infarct, hemorrhage, mass or edema. 3. Mild cerebral white matter disease characteristic of mild microvascular ischemic changes. Electronically signed by: Ebenezer Woodard MD 02/12/2018 11:52 AM EDT
--- NOTE | 2018-02-12 12:09 | MR ---
EXAM DATE: 02/12/2018 12:02 PM EDT AGE/SEX: 62 years / Male INDICATIONS: Left sided weakness. Vertigo. CLINICAL DATA: This is the patient's initial encounter. Patient reports that signs and symptoms have been present for 2 days and indicates a pain score of 4/10. MEDICAL/SURGICAL HISTORY: Diabetes mellitus type II. Hypertension. Bladder ca Tonsillectomy. Bladder bx. COMPARISON: [facility], MR HEAD W/O CONTRAST, 02/12/2018. . TECHNIQUE: 3D [id number] MRA was performed. Source images, multiplanar STS MIP, and 3D volum e MIP reconstructions were reviewed. FINDINGS: The examination is somewhat limited due to motion artifact. The distal internal carotids are patent bilaterally. The anterior and middle cerebral circulation jose ears within normal limits. The basilar is patent. The posterior cerebrals are patent. CONCLUSION: 1. Limited examination. No large or central vessel occlusion identified. Electronically signed by: Beto Lainez MD 02/12/2018 12:08 PM EDT
[2018-02-12 12:40] LABS: Chol/HDL Ratio 2.21 Ratio; HDL Cholesterol 63.7 mg/dL (40.0-60.0)
[2018-02-12] MEDS ORDERED: LORazepam 1 MG Tablet PO PRN (14:00)
[2018-02-12] MEDS ORDERED: Haloperidol Inj 5 MG/ML Ampul IV.PUSH PRN (14:00)
--- NOTE | 2018-02-12 14:03 | P.HPIM ---
History of Present Illness Primary Care Physician: No Primary Care Physician Chief Complaint: Foot numbness History of Present Illness: The patient is a 62-year-old male with a past medical history of hypertension and TIA who is presenting to the hospital with left foot numbness. He said that yesterday he went to [facility] and all of a sudden he felt his left foot go numb. He said throughout the day it got worse in that the numbness traveled higher up his leg. He said he was having some speech disturbances at the time. He states that he still feels the numbness. He is currently feeling dizzy. He says he has a history of vertigo. He says that he has been off balance and has been having difficulty ambulating. He says that his sister brought him here for further evaluation. The patient has not tried ambulating recently. He says he has a history of a mini stroke but is unable to recall the circumstances. Review of Systems All other systems reviewed negative except as stated in HPI [facility] - History History Provided By: Patient - Medical History Medical History: Medical History (Last Updated 02/12/18 @ 13:50 by Leon Kwon DO) Bladder cancer TIA (transient ischemic attack) Vertigo - Family History Family History: Family History (Last Updated 02/12/18 @ 13:51 by Leon Kwon DO) Other CAD (coronary artery disease) CVA (cerebral vascular accident) - Tobacco History Second Hand Smoke Exposure: Yes Tobacco Use In Past 30 Days: Yes Smoking Status: Current every day smoker Tobacco Type: Cigarettes - Alcohol History How Often Do You Have a Drink Containing Alcohol: 4 or more times a week - Travel History Recent Travel in the [place] Within the Last 8 Weeks: No Recent Travel Out of the Country Within the Last 8 Weeks: No - Immunization History Tetanus Immunization: Unsure Hx Influenza Vaccine This Season: No Medications and Allergies Active Medications: Active Medications Acetaminophen (Tylenol) 650 mg PO Q4H PRN PRN Reason: Temp > 100.4 Last Admin: 02/11/18 20:31 Dose: 650 mg Al Hydroxide/Mg Hydroxide (Milk Of Magnesia Liq) 30 ml PO Q12H PRN PRN Reason: Mild Constipation Aspirin (Aspirin Chew) 81 mg PO DAILY KEVIN Last Admin: 02/12/18 09:51 Dose: 81 mg Bisacodyl (Dulcolax Supp) 10 mg RECTAL DAILY PRN PRN Reason: SEVERE CONSITIPATION Dextrose (D50w Vial) 50 ml IV.PUSH UNSCH PRN PRN Reason: PER HYPOGLYCEMIA PROTOCOL Glucagon (Glucagon Inj) 1 mg OTHER UNSCH PRN PRN Reason: for Hypoglycemia Protocol Insulin Aspart (Novolog Insulin Correctional Sugar Inj) 0 unit SQ ACHS [facility]; Protocol Last Admin: 02/12/18 09:50 Dose: Not Given Lactulose (Lactulose Liq) 30 ml PO DAILY PRN PRN Reason: SEVERE CONSITIPATION Ondansetron HCl (Zofran Inj) 4 mg IV.PUSH Q6H PRN PRN Reason: NAUSEA OR VOMITING Pravastatin Sodium (Pravachol) 40 mg PO HS [facility] Last Admin: 02/11/18 20:32 Dose: 40 mg Senna/Docusate Sodium (Sonali-Colace) 1 tab PO BID [facility] Last Admin: 02/12/18 09:51 Dose: 1 tab Sennosides (Senokot) 17.2 mg PO Q12H PRN PRN Reason: Moderate Constipation Sodium Chloride (Ns Flush) 2 ml IV.FLUSH BID [facility] Last Admin: 02/12/18 09:50 Dose: Not Given Sodium Chloride (Ns Flush) 2 ml IV.FLUSH PRN PRN PRN Reason: FLUSH AFTER USING IV ACCESS Allergies Allergy/AdvReac Type Severity Reaction Status Date / Time *MDRO Multi-Drug Resistant Allergy Unknown Uncoded 07/30/17 11:35 Organism Home Medications Medication Instructions Recorded Confirmed Type No Known Home Medications 02/11/18 02/11/18 History Exam Vital signs: Vital Signs 02/11/18 18:40 02/11/18 19:29 02/11/18 19:50 Temperature 98.3 F Pulse Rate 84 82 Respiratory Rate 20 Blood Pressure 114/71 Pulse Oximetry 92 L 92 L 02/11/18 19:52 02/11/18 20:55 02/11/18 21:23 Temperature Pulse Rate 67 60 55 L Respiratory Rate 20 18 20 Blood Pressure 139/77 132/81 128/71 Pulse Oximetry 95 02/11/18 22:25 02/12/18 00:00 02/12/18 04:00 Temperature 97.1 F L 97.7 F Pulse Rate 61 62 66 Respiratory Rate 20 20 21 Blood Pressure 149/76 H 161/89 H 168/84 H Pulse Oximetry 97 99 Intake & Output 02/11/18 02/12/18 02/12/18 18:59 06:59 18:59 Intake Total 0 / 0 240 / 240 Output Total 500 / 500 Balance -500 / -500 240 / 240 Weight 79.6 kg 77.9 kg Intake: Oral 0 / 0 240 / 240 Output: Urine 500 / 500 Other: # Voids 2 Weight On Admission 77.9 kg Narrative: GENERAL: No distress. SKIN: Focused skin assessment warm/dry. HEAD: Atraumatic. Normocephalic. EYES: Pupils equal and round. Injection bilaterally. Pupils are 2 mm bilateral and reactive. EOMs are intact. ENT: No nasal bleeding or discharge. NECK: Trachea midline. No JVD. CARDIOVASCULAR: Regular rate and rhythm. Harsh systolic murmur appreciated. RESPIRATORY: No accessory muscle use. Clear to auscultation. Breath sounds equal bilaterally. GASTROINTESTINAL: Abdomen soft, non-tender, nondistended. MUSCULOSKELETAL: No obvious deformities. No clubbing. No cyanosis. No edema. NEUROLOGICAL: Awake and alert. EOMs are intact. Tongue is midline. Finger to nose is normal. Patient is oriented 3. Motor strength symmetrical in the upper and lower extremities. Dysarthria noted. Results - Labs CBC & Chem 7: 02/11/18 19:00 02/11/18 19:00 Labs: Short CBC 02/11/18 Range/Units 19:00 WBC 6.9 (4.0-11.0) th/mm3 Hgb 15.0 (13.0-17.0) gm/dL Hct 44.0 (39.0-51.0) % Plt Count 254 (150-450) th/mm3 [facility] 02/11/18 19:00 Sodium 140 Potassium 3.6 Chloride 106 Carbon Dioxide 23.2 BUN 7 Creatinine 0.87 Calcium 8.7 Cardiac Enzymes 02/11/18 Range/Units 19:00 Total Creatine Kinase 314 H (39-308) U/L CK-MB (CK-2) 2.6 (0.5-3.6) ng/mL Troponin I Less than 0.02 L (0.02-0.05) ng/mL Liver Function 02/11/18 Range/Units 19:00 Total Bilirubin 0.3 (0.2-1.0) mg/dL AST 29 (15-37) U/L ALT 24 (12-78) U/L Alkaline Phosphatase 64 (45-117) U/L Albumin 3.9 (3.4-5.0) g/dL Urine 02/11/18 Range/Units 21:20 Urine Color Yellow (Yellw/Straw) Urine Clarity Clear (Clear) Urine pH 5.5 (5.0-8.5) Ur Specific [place] Less/equal 1.005 (1.002-1.035) Urine Protein Negative (Neg-Trace) mg/dL Urine Glucose (UA) Negative (Negative) mg/dL - Imaging Impressions Chest X-Ray 02/11/18 18:59 CONCLUSION: No acute cardiopulmonary disease. Head CT 02/11/18 19:00 CONCLUSION: 1. Stable negative noncontrast head CT. . Head MRI 02/12/18 20:04 CONCLUSION: 1. Left posterior parietal occipital encephalomalacia. 2. No evidence of acute infarct, hemorrhage, mass or edema. 3. Mild cerebral white matter disease characteristic of mild microvascular ischemic changes. Head MRA 02/12/18 20:04 CONCLUSION: 1. Limited examination. No large or central vessel occlusion identified. Caprini VTE Risk Assessment Caprini VTE Risk Assessment: Moderate/High Risk (score >= 2) Caprini Risk Assessment Model: Point Value = 1 Point Value = 2 Point Value = 3 Point Value = 5 Age 41-60 Minor surgery BMI > 25 kg/m2 Swollen legs Varicose veins or History of unexplained or recurrent spontaneous Oral contraceptives or hormone replacement Sepsis (< 1 month) Serious lung disease, including pneumonia (< 1 month) Abnormal pulmonary function Acute myocardial infarction Congestive heart failure (< 1 month) History of inflammatory bowel disease Medical patient at bed rest Age 61-74 Arthroscopic surgery Major open surgery (> 45 min) Laparoscopic surgery (> 45 min) Malignancy Confined to bed (> 72 hours) Immobilizing plaster cast Central venous access Age >= 75 History of VTE Family history of VTE Factor V Leiden Prothrombin 24327A Lupus anticoagulant Anticardiolipin antibodies Elevated serum homocysteine Heparin-induced thrombocytopenia Other congenital or acquired thrombophilia Stroke (< 1 month) Elective arthroplasty Hip, pelvis, or leg fracture Acute spinal cord injury (< 1 month) Prophylaxis Regimen: Total Risk Factor Score Risk Level Prophylaxis Regimen 0-1 Low Early ambulation 2 Moderate Order ONE of the following: *Sequential Compression Device (SCD) *Heparin 5000 units SQ BID 3-4 Higher Order ONE of the following medications: *Heparin 5000 units SQ TID *Enoxaparin/Lovenox 40 mg SQ daily (WT < 150 kg, CrCl > 30 mL/min) *Enoxaparin/Lovenox 30 mg SQ daily (WT < 150 kg, CrCl > 10-29 mL/min) *Enoxaparin/Lovenox 30 mg SQ BID (WT < 150 kg, CrCl > 30 mL/min) AND/OR *Sequential Compression Device (SCD) 5 or more Highest Order ONE of the following medications: *Heparin 5000 units SQ TID (Preferred with Epidurals) *Enoxaparin/Lovenox 40 mg SQ daily (WT < 150 kg, CrCl > 30 mL/min) *Enoxaparin/Lovenox 30 mg SQ daily (WT < 150 kg, CrCl > 10-29 mL/min) *Enoxaparin/Lovenox 30 mg SQ BID (WT < 150 kg, CrCl > 30 mL/min) AND *Sequential Compression Device (SCD) Assessment and Plan - Plan Left leg numbness/ Dysarthria Imaging including MRI negative for an acute process. Pt still symptomatic and endorses dizziness. LDL not elevated. -carotid Duplex and echo pending. Recent echo unremarkable. -neurology consult pending. -continue ASA 81 mg daily. -PT/OT/ST. -check A1c, TSH, B12. Nicotine abuse The pt smokes a pack a day. -cessation instruction. Alcohol use The pt seems to be minimizing his beer drinking. Serum alcohol level was elevated at 158. -cessation instruction. -CIWA. PPx: Lovenox H&P: Quality - VTE Deep Vein Thrombosis/Pulmonary Embolism Present on Admission: No
[2018-02-12 15:10] LABS: Thyroid Stimulating Hormone 0.961 uIU/mL (0.358-3.740)
--- NOTE | 2018-02-12 15:10 | ECG ---
Date Performed: 02/11/2018 Time Performed: 19:44:20 PTAGE: 62 years EKG: Sinus rhythm Since previous tracing, no significant change noted NORMAL ECG PREVIOUS TRACING : 07/13/2017 05.30 DOCTOR: Felton Salgado Interpretating Date/Time 02/12/2018 15:08:25
--- NOTE | 2018-02-12 15:59 | US ---
EXAM DATE: 02/12/2018 3:55 PM EDT AGE/SEX: 62 years / Male INDICATIONS: Transient ischemic attack. CLINICAL DATA: This is the patient's subsequent encounter. Patient reports that signs and symptoms h ave been present for 1 day and indicates a pain score of 0/10. MEDICAL/SURGICAL HISTORY: . Bladder cancer. TIA. Vertigo. None. COMPARISON: No prior exams available for comparison. VELOCITY PARAMETERS: ICA/CCA Ratio: Right 1.8 , Left 1.9 ICA: Right 110 cm/sec, Left 139 cm/sec CCA: Right 61 cm/sec, Left 75 cm/sec ECA: Right 119 cm/sec, Left 73 cm/sec Vertebral: Right 74 cm/sec antegrade, Left 59 cm/sec antegrade FINDINGS: Right Carotid: Moderate arteriosclerotic plaque is visualized.The waveforms are within normal limits . Left Carotid: Moderate arteriosclerotic plaque is visualized. The waveforms are within normal limits . Other: None. CONCLUSION: 1. Right Internal Carotid Artery: Findings indicate <50% stenosis. Significant calcified and noncal cified plaque is noted. 2. Left Internal Carotid Artery: Findings indicate <50% stenosis. Significant calcified and noncalc ified plaque is noted. 3. Antegrade flow both vertebral arteries. Electronically signed by: Ebenezer Woodard MD 02/12/2018 3:57 PM EDT
[2018-02-12 16:27] LABS: Hemoglobin A1c 5.3 % (4.3-6.0)
--- NOTE | 2018-02-12 17:46 | ECHRPT ---
Indication: CVA/TIA CONCLUSIONS The left ventricular systolic function is normal with an estimated ejection fraction in the range of 60-65%. Mild aortic valve stenosis (peak grad 28, mean grad 14, TALIA 1.8). Moderate aortic valve regurgitation. BP: / HR: Rhythm: MEASUREMENTS (Male / Female) Normal Values Technical Quality: 2D ECHO LV Diastolic Diameter PLAX 4.1 cm 4.2 - 5.9 / 3.9 - 5.3 cm LV Systolic Diameter PLAX 2.9 cm IVS Diastolic Thickness 1.1 cm 0.6 - 1.0 / 0.6 - 0.9 cm LVPW Diastolic Thickness 1.1 cm 0.6 - 1.0 / 0.6 - 0.9 cm LV Relative Wall Thickness 0.5 RV Internal Dim ED PLAX 2.5 cm LVOT Diameter 2.2 cm LA Systolic Diameter LX 2.9 cm 3.0 - 4.0 / 2.7 - 3.8 cm LV Ejection Fraction MOD 4C 64.2 % LV Ejection Fraction 4C AL 64.7 % M-MODE Aortic Root Diameter MM 2.1 cm LA Systolic Diameter MM 3.6 cm LA Ao Ratio MM 1.7 AV Cusp Separation MM 1.1 cm DOPPLER AV Peak Velocity 267.5 cm/s AV Peak Gradient 28.6 mmHg AV Mean Gradient 14.0 mmHg AV Velocity Time Integral 56.4 cm AI Peak Velocity 300.0 cm/s AI Peak Gradient 36.0 mmHg AI Pressure Half Time 351.0 ms LVOT Peak Velocity 122.0 cm/s LVOT Peak Gradient 6.0 mmHg LVOT Velocity Time Integral 28.2 cm AV Area Cont Eq vti 1.9 cm AV Area Cont Eq pk 1.7 cm MV Area PHT 3.3 cm Mitral E Point Velocity 72.1 cm/s Mitral A Point Velocity 70.6 cm/s Mitral E to A Ratio 1.0 LV E' Lateral Velocity 10.2 cm/s Mitral E to LV E' Lateral Ratio 7.1 LV E' Septal Velocity 7.0 cm/s Mitral E to LV E' Septal Ratio 10.3 TR Peak Velocity 107.0 cm/s TR Peak Gradient 4.6 mmHg Right Atrial Pressure 10.0 mmHg Pulmonary Artery Systolic Pressu 14.6 mmHg Right Ventricular Systolic Press 14.6 mmHg PV Peak Velocity 118.5 cm/s PV Peak Gradient 5.6 mmHg FINDINGS LEFT VENTRICLE The left ventricular systolic function is normal with an estimated ejection fraction in the range of 60-65%. Normal left ventricular size. Wall thickness is normal. No regional wall motion abnormalities are present. RIGHT VENTRICLE Normal right ventricular size and systolic function. LEFT ATRIUM The left atrial size is normal. RIGHT ATRIUM The right atrial size is normal. ATRIAL SEPTUM Normal atrial septal thickness without atrial level shunting by limited color doppler interrogation. AORTA The aortic root and proximal ascending aorta are normal in size on limited imaging. MITRAL VALVE Structurally normal mitral valve. No mitral valve stenosis or regurgitation. Mild mitral annular calcification. AORTIC VALVE Diffuse calcification of the aortic valve. Mild aortic valve stenosis (peak grad 28, mean grad 14, TALIA 1.8) Moderate aortic valve regurgitation. TRICUSPID VALVE Structurally normal tricuspid valve. No tricuspid valve stenosis or regurgitation. PULMONARY VALVE No pulmonary valve regurgitation or stenosis. VESSELS The inferior vena cava is normal in size. PERICARDIUM No pericardial effusion. Jd Arcos DO (Electronically Signed) Final Date:12 February 2018 17:45
[2018-02-12] MEDS: Enoxaparin Inj 30 MG/0.3 ML Syringe SQ SCH (18:44)
[2018-02-12] MEDS: Aspirin 325 MG Tablet PO SCH (20:43)
--- NOTE | 2018-02-13 05:45 | MB ---
cc: Fritz Hawk MD, PhD DATE: 02/12/2018 REASON FOR CONSULTATION: Stroke. HISTORY OF PRESENT ILLNESS: Mr. Currie is a 62-year-old man who yesterday began to notice numbness in the left foot, which progressed up the left leg with some weakness in the leg. He had some slurring of the speech as well. He states his thought his speech was slurred. He feels he is improved, but still has some numbness in the left leg. PAST MEDICAL HISTORY: History of bladder cancer, TIA in the past. He states he was not on any blood thinners at home, not on aspirin at home. NEUROLOGICAL EXAMINATION: VITAL SIGNS: His blood pressure is 149/87, pulse 59, respiratory rate is 20, temperature 97.1 degrees. HIGHER CORTICAL FUNCTIONS: Normal. CRANIAL NERVES: Intact. MOTOR: Normal strength and tone of all groups. SENSORY: Subjectively diminished in the left leg. REFLEXES: 2+, symmetric. IMAGING STUDIES: CT of the head: Moderate atrophy is identified. No acute changes identified. MRI of the head: Left posterior parieto-occipital encephalomalacia. No acute stroke seen. Ischemic demyelinization is identified, which is mild. Head MRA: Limited exam, but no large vessel occlusion identified. Echocardiogram: EF is 60%-65%, moderate aortic valve regurgitation, mild aortic valve stenosis is identified. Right atrial size normal. Left atrial size normal. Right ventricle normal. Atrial septum normal thickness. Aorta, aortic root, and proximal aorta normal in size. Tricuspid valve normal. Pulmonary valve normal. LABORATORY DATA: The white count is 6900, hemoglobin 15, hematocrit 44%, platelet count 254,000. PT 9.7, INR 1. APTT 28.4. Sodium is 140, potassium 3.6, chloride 106, CO2 of 23.2, BUN 7, creatinine 0.87, GFR is 89, glucose 97, calcium 8.7, AST 29, ALT 24, LDL 62, HDL 63.7. B12 is 281. Cholesterol . IMPRESSION: Probable transient ischemic attack, now resolved. RECOMMENDATIONS: Start aspirin 325 mg daily. Monitor cardiac telemetry. Rule out atrial fibrillation. He did have a carotid ultrasound as well showing no significant stenosis. Fritz Hawk MD, PhD ELHAM/polly/elissa , 08:15 PM , 08:20 PM
[2018-02-13] MEDS: Insulin NovoLOG Aspart Correctional Sugar Inj SQ SCH ×3 (10:08→20:37)
[2018-02-13] MEDS: Senna/Docusate Sodium 8.6/50 MG Tablet PO SCH ×2 (10:09→20:37)
[2018-02-13] MEDS: Aspirin 325 MG Tablet PO SCH (10:09)
[2018-02-13] MEDS: Enoxaparin Inj 30 MG/0.3 ML Syringe SQ SCH (10:09)
--- NOTE | 2018-02-13 11:37 | P.PNIM ---
Subjective Interval history: The pt was resting comfortably in bed. He said he was still dizzy. He tried ambulating and had to lean on the bed for support. He said his symptoms have not improved yet. Physical Exam Vital signs: Vital Signs 02/12/18 12:00 02/12/18 16:00 02/12/18 20:00 Temperature 97.1 F L 98.2 F 96 F L Pulse Rate 59 L 70 66 Respiratory Rate 20 20 20 Blood Pressure 149/87 H 162/91 H 160/88 H Pulse Oximetry 96 98 98 02/13/18 00:00 02/13/18 04:41 02/13/18 08:00 Temperature 98.9 F 96.7 F L 97.8 F Pulse Rate 59 L 64 63 Respiratory Rate 20 20 20 Blood Pressure 138/78 145/85 H 144/88 H Pulse Oximetry 98 98 95 Intake & Output 02/12/18 02/13/18 02/13/18 18:59 06:59 18:59 Intake Total 720 / 720 1240 / 1240 240 / 240 Output Total 240 / 240 Balance 720 / 720 1240 / 1240 0 / 0 Weight 76.6 kg Intake: IV 1000 / 1000 Oral 720 / 720 240 / 240 240 / 240 Output: Urine 240 / 240 Other: # Voids 2 Narrative: GENERAL: No distress. SKIN: Focused skin assessment warm/dry. HEAD: Atraumatic. Normocephalic. EYES: Pupils equal and round. Injection bilaterally. Pupils are 2 mm bilateral and reactive. EOMs are intact. ENT: No nasal bleeding or discharge. NECK: Trachea midline. No JVD. CARDIOVASCULAR: Regular rate and rhythm. Harsh systolic murmur appreciated. RESPIRATORY: No accessory muscle use. Clear to auscultation. Breath sounds equal bilaterally. GASTROINTESTINAL: Abdomen soft, non-tender, nondistended. MUSCULOSKELETAL: No obvious deformities. No clubbing. No cyanosis. No edema. NEUROLOGICAL: Awake and alert. EOMs are intact. Tongue is midline. Finger to nose is normal. Patient is oriented 3. Motor strength symmetrical in the upper and lower extremities. Dysarthria noted. Unsteady gait. Results - Labs CBC & Chem 7: 02/11/18 19:00 02/11/18 19:00 Laboratory Results - last 24 hr 02/12/18 02/12/18 02/12/18 06:30 06:30 06:30 POC Glucose Hemoglobin A1c 5.3 Triglycerides 76 Cholesterol 141 LDL Cholesterol, Calc 62 HDL Cholesterol 63.7 H Cholesterol/HDL Ratio 2.21 Vitamin B12 281 TSH 0.961 02/12/18 20:41 POC Glucose 116 H Hemoglobin A1c Triglycerides Cholesterol LDL Cholesterol, Calc HDL Cholesterol Cholesterol/HDL Ratio Vitamin B12 TSH - Imaging Impressions Carotid Doppler Study 02/12/18 00:00 CONCLUSION: 1. Right Internal Carotid Artery: Findings indicate <50% stenosis. Significant calcified and noncalcified plaque is noted. 2. Left Internal Carotid Artery: Findings indicate <50% stenosis. Significant calcified and noncalcified plaque is noted. 3. Antegrade flow both vertebral arteries. Head MRI 02/12/18 20:04 CONCLUSION: 1. Left posterior parietal occipital encephalomalacia. 2. No evidence of acute infarct, hemorrhage, mass or edema. 3. Mild cerebral white matter disease characteristic of mild microvascular ischemic changes. Head MRA 02/12/18 20:04 CONCLUSION: 1. Limited examination. No large or central vessel occlusion identified. Assessment and Plan - Plan Left leg numbness/ Dysarthria Imaging including MRI negative for an acute process. Pt still symptomatic and endorses dizziness. LDL not elevated. Echo with mild , normal EF. Carotid Duplex without significant stenosis. -neurology following. -continue ASA 325 mg daily. -PT/OT/ST. -B12 level on the low side, will give IM x 1. -CM consult. Nicotine abuse The pt smokes a pack a day. -cessation instruction. Alcohol use The pt seems to be minimizing his beer drinking. Serum alcohol level was elevated at 158. -cessation instruction. -CIWA. PPx: Lovenox
[2018-02-14] MEDS: Aspirin 325 MG Tablet PO SCH (08:44)
[2018-02-14] MEDS: Senna/Docusate Sodium 8.6/50 MG Tablet PO SCH (08:45)
[2018-02-14] MEDS: Enoxaparin Inj 30 MG/0.3 ML Syringe SQ SCH (08:45)
[2018-02-14] MEDS: Insulin NovoLOG Aspart Correctional Sugar Inj SQ SCH (08:46)
--- NOTE | 2018-02-14 10:09 | P.DS ---
Date of admission: 02/11/18 20:04 Primary care physician: No Primary Care Physician Anticipated date of discharge: 02/14/18 Brief History from admission: The patient is a 62-year-old male with a past medical history of hypertension and TIA who is presenting to the hospital with left foot numbness. He said that yesterday he went to [facility] and all of a sudden he felt his left foot go numb. He said throughout the day it got worse in that the numbness traveled higher up his leg. He said he was having some speech disturbances at the time. He states that he still feels the numbness. He is currently feeling dizzy. He says he has a history of vertigo. He says that he has been off balance and has been having difficulty ambulating. He says that his sister brought him here for further evaluation. The patient has not tried ambulating recently. He says he has a history of a mini stroke but is unable to recall the circumstances. Patient update on day of discharge: Feeling well, no complaints. Ambulating without difficulty. Wants to go home. DS: Diagnosis - Discharge Diagnosis (1) Acute focal neurological deficit Status: Acute DS: Medications - Discharge Medications Prescriptions: aspirin 325 mg PO DAILY #30 tab cyanocobalamin (vitamin B-12) 1,000 mcg PO DAILY #30 tab DS: Summary Hospital Course: Left leg numbness/ Dysarthria Imaging including MRI negative for an acute process. LDL not elevated. Echo with mild , normal EF. Carotid Duplex without significant stenosis. Neurology was consulted. He will continue ASA 325 mg daily. He worked with PT/OT/ST. B12 level on the low side so he received B12 IM x 1 and will be discharged on PO supplementation. He will follow up with neurology as an outpt. Nicotine abuse The pt smokes a pack a day. He received cessation instruction. Alcohol use The pt seems to be minimizing his beer drinking. Serum alcohol level was elevated at 158 on admission. He received cessation instruction. He was placed on CIWA protocol. - Time Spent with Patient Total time spent providing and/or coordinating discharge services: Less than 30 minutes - Quality: VTE Deep Vein Thrombosis/Pulmonary Embolism Present on Admission: No Exam Vital signs: Vital Signs 02/13/18 16:00 02/13/18 20:00 02/14/18 00:00 Temperature 97.8 F 98.1 F 97.7 F Pulse Rate 58 L 58 L 57 L Respiratory Rate 19 20 20 Blood Pressure 169/73 H 145/75 H 145/75 H Pulse Oximetry 97 99 97 02/14/18 08:00 Temperature 98.8 F Pulse Rate 60 Respiratory Rate 20 Blood Pressure 124/70 Pulse Oximetry 97 Intake & Output 02/13/18 02/14/18 02/14/18 18:59 06:59 18:59 Intake Total 440 / 440 240 / 240 Output Total 541 / 541 Balance -101 / -101 240 / 240 Weight 76.8 kg Intake: Oral 440 / 440 240 / 240 Output: Urine 540 / 540 Stool Other: # Voids 3 Date of Last Bowel Movement 02/13/18 02/13/18 Narrative: GENERAL: No distress. SKIN: Focused skin assessment warm/dry. HEAD: Atraumatic. Normocephalic. EYES: Pupils equal and round. Injection bilaterally. Pupils are 2 mm bilateral and reactive. EOMs are intact. ENT: No nasal bleeding or discharge. NECK: Trachea midline. No JVD. CARDIOVASCULAR: Regular rate and rhythm. Harsh systolic murmur appreciated. RESPIRATORY: No accessory muscle use. Clear to auscultation. Breath sounds equal bilaterally. GASTROINTESTINAL: Abdomen soft, non-tender, nondistended. MUSCULOSKELETAL: No obvious deformities. No clubbing. No cyanosis. No edema. NEUROLOGICAL: Awake and alert. EOMs are intact. Tongue is midline. Finger to nose is normal. Patient is oriented 3. Motor strength symmetrical in the upper and lower extremities. Dysarthria noted. Unsteady gait. Results Procedures completed during hospitalization: None Labs on day of discharge: Labs from last 24 hours 02/14/18 02/13/18 08:28 20:35 POC Glucose 249 H 125 H - Impressions ITS Impressions Chest X-Ray 02/11/18 18:59 CONCLUSION: No acute cardiopulmonary disease. Head CT 02/11/18 19:00 CONCLUSION: 1. Stable negative noncontrast head CT. . Carotid Doppler Study 02/12/18 00:00 CONCLUSION: 1. Right Internal Carotid Artery: Findings indicate <50% stenosis. Significant calcified and noncalcified plaque is noted. 2. Left Internal Carotid Artery: Findings indicate <50% stenosis. Significant calcified and noncalcified plaque is noted. 3. Antegrade flow both vertebral arteries. Head MRI 02/12/18 20:04 CONCLUSION: 1. Left posterior parietal occipital encephalomalacia. 2. No evidence of acute infarct, hemorrhage, mass or edema. 3. Mild cerebral white matter disease characteristic of mild microvascular ischemic changes. Head MRA 02/12/18 20:04 CONCLUSION: 1. Limited examination. No large or central vessel occlusion identified. Discharge Plan - Discharge Disposition Patient Disposition: 01 Discharge Home - Discharge Condition Condition: Stable - Discharge Order Discharge Orders: Discharge Order (Routine); Ordered 02/14/18 Ordered By: Leon Kwon - Discharge Details Anticipated Discharge Date: 02/14/18 - Physicians Team Primary Care Provider: Primary Care Sha,Meena Attending Provider: Leon Kwon Other Providers: Fritz Hawk MD, PhD
== END 2018-02-14 12:24 | disposition home or self-care (01) ==
LOC: PHED 18:36 → PHEDA 18:36 → PH3 22:50
PROVIDERS: ADMIT Hospitalist; ATTEND Hospitalist